=== PATIENT | male | born 1955 | race Caucasian/White ===

== ENCOUNTER 2017-06-14 19:23 | Emergency (ER) | payer OTHER ==
[~2017-06-14] VITALS: Ht 190.5 cm; Wt 65.8 kg
[~2017-06-14 19:23] MED LIST: ASPIRIN325 PO; DICLOFENAC SODI75 MG PO; DOXYCYCLINE 10100 MG PO; LIPITOR 20 MG T20 M1 PO; NORCO 10-325 T1 EACH PO; PREDNISONE 20 M20 M1 PO; PROAIR HFA8.5 GM; SPIRIVA INH; SYMBICORT160 MCG/4. INH
[2017-06-14 20:42] LABS: ABSOLUTE NEUTROPHILS 2.8 thou/uL (1.4-8.2); BASOPHILS 0.8 % (0.0-2.0); EOSINOPHILS 1.9 % (0.0-3.0); HEMATOCRIT 36.2 % (42.0-52.0); HEMOGLOBIN 12.4 gm/dL (14.0-18.0); LYMPHOCYTES 31.8 % (24.0-44.0); MANUAL DIFF NO; MCHC 34.3 g/dL (28.0-37.0); MCV 93.3 fL (80.0-100.0); MONOCYTES 10.7 % (1.0-8.0); PLATELET COUNT 403 thou/uL (150-400); POLYS 54.8 % (36.0-66.0); RBC 3.88 mil/uL (4.50-6.00); RDW 12.7 % (10.5-14.5)
[2017-06-14 20:50] LABS: CALCIUM 9.3 mg/dL (8.5-10.1); CREATININE 0.9 mg/dL (0.7-1.3); POTASSIUM 3.6 mmol/L (3.5-5.1)
[2017-06-14] MEDS ORDERED: CLEOCIN HCL150 MG PO (21:23)
[2017-06-14] MEDS ORDERED: TRAMADOL 50 MG50 MG PO (21:23)
== END 2017-06-14 21:54 | disposition home or self-care (01) ==
LOC: ER 19:23
PROVIDERS: Emergency Medicine
DX: S91.331A Puncture wound without foreign body, right foot, initial encounter (principal); L03.115 Cellulitis of right lower limb; F17.210 Nicotine dependence, cigarettes, uncomplicated; J44.1 Chronic obstructive pulmonary disease with (acute) exacerbation; W22.8XXA Striking against or struck by other objects, initial encounter; Y93.89 Activity, other specified; Y92.89 Other specified places as the place of occurrence of the external cause; Y99.8 Other external cause status

== ENCOUNTER 2017-07-06 18:58 | Inpatient (IN) | payer OTHER ==
[~2017-07-06] VITALS: Ht 188 cm; Wt 61.8 kg
--- NOTE | ~2017-07-06 | EKG ---
[place] [address] [address] [facility] [email or web address] [address] ELECTROCARDIOGRAM REPORT Name: ELIANE LUNDY Room #: [facility]#: [id number] Admission: 07/06/17 Attend Phys: Discharge: Date of : 59 Report #: [id number] THIS REPORT FOR: //name// [facility] ED Test Date: 2017-07-06 Test Time: 19:39:24 Pat Name: ELIANE LUNDY Department: Room: Gender: Instrument And Control Service Person: CARLO : 1955 Requested By: Anish Dove Order Number: [id number] MD: Jean Marie Cardoso Measurements Intervals [place] Rate: 74 P: 83 [place]: 172 QRS: 82 QRSD: 83 T: 71 QT: 382 QTc: 424 Interpretive Statements Sinus rhythm Low voltage, precordial leads Compared to ECG 07/12/2015 23:01:39 Low QRS voltage now present Electronically Signed On 07-06-2017 19:43:13 CDT by Jean Marie Cardoso [email or web address] <ELECTRONICALLY SIGNED> By: Jean Marie Cardoso MD 07/06/171942 38 38 Jean Marie Cardoso MD /MEME
[~2017-07-06 18:58] MED LIST changes: +CLEOCIN HCL150 MG PO; +TRAMADOL 50 MG50 MG PO
[2017-07-06 18:59] VITALS: BP 123/83
[2017-07-06 19:35] LABS: ABSOLUTE NEUTROPHILS 3.7 thou/uL (1.4-8.2); EOSINOPHILS 1.9 % (0.0-3.0); HEMOGLOBIN 12.8 gm/dL (14.0-18.0); LYMPHOCYTES 26.8 % (24.0-44.0); MCH 31.6 pg (26.0-34.0); MCHC 33.7 g/dL (28.0-37.0); MCV 93.9 fL (80.0-100.0); MONOCYTES 11.2 % (1.0-8.0); PLATELET COUNT 267 thou/uL (150-400); POLYS 59.1 % (36.0-66.0); RBC 4.04 mil/uL (4.50-6.00); RDW 13.1 % (10.5-14.5); WBC 6.3 thou/uL (4.0-11.0)
[2017-07-06 19:36] LABS: MANUAL DIFF NO
[2017-07-06 19:37] LABS: ABG SAMPLE TYPE ARTERIAL; BE(vivo) 3.1 mmol/L (-2 to +3); LACTATE 1.13 mmol/L (0.5-2.0); O2(CT) 17.8 mL/dL (15.0-23.0); O2Hb 94.2 % (92.0-98.0); PCO2 43.8 mmHg (35.0-45.0); PO2 93.9 mmHg (80.0-100.0); pH 7.424 (7.360-7.450); sO2 97.3 % (92.0-98.0); tCO2 29.4 mmol/L (24.0-30.0)
[2017-07-06 19:40] LABS: STICK SITE L.BRACHIAL
[2017-07-06 19:42] LABS: ANION GAP 6 mmol/L (7-16); BUN 11 mg/dL (7-18); CALCIUM 8.9 mg/dL (8.5-10.1); CHLORIDE 103 mmol/L (98-107); CO2 31 mmol/L (21-32); CREATININE 0.8 mg/dL (0.7-1.3); GLUCOSE 98 mg/dL (74-106); POTASSIUM 3.6 mmol/L (3.5-5.1); SODIUM 140 mmol/L (136-145)
[2017-07-06 19:51] LABS: TROPONIN-I < 0.04 ng/mL (<0.06)
[2017-07-06 20:17] VITALS: BP 122/78
[2017-07-06 20:39] VITALS: BP 117/76
[2017-07-06 20:56] VITALS: BP 115/86
[2017-07-06 23:42] VITALS: BP 125/78
[2017-07-07 04:11] VITALS: BP 110/73
[2017-07-07 07:49] VITALS: BP 124/85
[2017-07-07 15:15] VITALS: BP 108/69
[2017-07-07 19:41] VITALS: BP 109/61
[2017-07-08 07:41] VITALS: BP 122/76
[2017-07-08 08:00] VITALS: BP 122/76
[2017-07-08] MEDS ORDERED: DOXYCYCLINE HYC50 MG PO (10:43)
[2017-07-08] MEDS ORDERED: PROAIR HFA8.5 GM INH (10:44)
[2017-07-08] MEDS ORDERED: SPIRIVA INH (10:44)
[2017-07-08] MEDS ORDERED: PULMICORT0.5 MG/21 INH (10:45)
[2017-07-08] MEDS ORDERED: PREDNISONE 20 M20 MG PO (10:45)
[2017-07-08 10:52] VITALS: BP 122/76
[2017-07-08 11:38] VITALS: BP 122/76
== END 2017-07-08 13:32 | disposition home or self-care (01) | DRG 192 ==
LOC: ER 18:58 → EROBS 20:07 → 4S 20:45 → ENTRNSPT 07-08 13:20 → EDTRNSPTSTS 07-08 13:21 → 4S 07-08 13:32
PROVIDERS: Nurse Practitioner
DX: J44.0 Chronic obstructive pulmonary disease with (acute) lower respiratory infection (principal); J44.1 Chronic obstructive pulmonary disease with (acute) exacerbation; I48.91 Unspecified atrial fibrillation; J20.9 Acute bronchitis, unspecified; Z99.81 Dependence on supplemental oxygen; Z87.891 Personal history of nicotine dependence; Z23 Encounter for immunization
CPT/HCPCS: 10100

== ENCOUNTER 2017-07-21 04:18 | Inpatient (IN) | payer OTHER ==
[~2017-07-21] VITALS: Ht 188 cm; Wt 60.8 kg
--- NOTE | ~2017-07-21 | EKG ---
[address] [address] ELECTROCARDIOGRAM REPORT Name: ELIANE LUNDY GLENNY Room #: 447-P ADM IN M.R.#: [id number] Admission: 07/21/17 Attend Phys: Anthony Mckay MD Discharge: Date of : 59 Report #: [id number] THIS REPORT FOR: //name// [facility] ED Test Date: 2017-07-21 Test Time: 05:40:13 Pat Name: ELIANE LUNDY Department: Room: 447 P Gender: M Geospatial Image Analyst: WENDY : 1955 Requested By: Osvaldo Tapia Order Number: [id number] MD: Jean Marie Cardoso Measurements Intervals [place] Rate: 71 P: 80 [place]: 155 QRS: 77 QRSD: 90 T: 73 QT: 375 QTc: 408 Interpretive Statements Sinus rhythm Probable left atrial enlargement Compared to ECG 07/06/2017 19:39:24 No significant changes Electronically Signed On 07-21-2017 20:59:08 PROTEIN SPECIALIST by Jean Marie Cardoso [email or web address] <ELECTRONICALLY SIGNED> By: Jean Marie Cardoso MD 07/21/172058 9 9 Jean Marie Cardoso MD /MEME
--- NOTE | ~2017-07-21 | HC ---
[facility] [place] [address] CONSULTATION Name: ELIANE LUNDY Room #: 447-P ADM IN M.R.#: [id number] Admission: 07/21/17 Attend Phys: Anthony Mckay MD Discharge: Date of : 59 Report #: [id number] THIS REPORT FOR: //name// CC: Lester Mckay PRIMARY PHYSICIAN: Daron Wilhelm DO REFERRAL PHYSICIAN: Anthony Mckay MD REASON FOR REFERRAL: COPD exacerbation. HISTORY OF PRESENT ILLNESS: The patient is a 61-year-old white male who presents to the emergency room with acute onset of dyspnea. A pulmonary consultation was requested. The patient has known severe COPD. He is normally followed by Dr. Jayson Hsieh at [facility]. He states that he has been hospitalized about every 2 months or so. He has also been offered possible lung transplantation. I believe he is on the process of being evaluated. He was doing fairly well until the last few days, he has noticed mild increase in dyspnea. Early this morning around 3:00 a.m., he woken with severe dyspnea and chest tightness. For that reason, he presents to the emergency room. Otherwise, he denies any recent febrile illness, night sweats or chills, chest pain or productive cough. He denies anyone else sick at home including viral syndrome. PAST MEDICAL HISTORY: Remarkable for COPD, severe impairment, oxygen dependent; has a history of atrial fibrillation, undergone ablation. PAST SURGICAL HISTORY: Include prior right foot reconstructive surgery, right knee surgery, tonsillectomy, and lens implantation. ALLERGIES: None to medications. HOME MEDICATIONS: Include Spiriva once a day, ProAir 2 puffs p.r.n., budesonide nebulized 0.5 mg b.i.d., he recently finished a course of pulse prednisone therapy and doxycycline. FAMILY HISTORY: Noncontributory. SOCIAL HISTORY: The patient has smoked in the past, but quit recently, he has smoked more than 40 years. He denies any alcohol use. [facility] [address] [place] [address] CONSULTATION Name: ELIANE LUNDY Room #: 447-P [facility] IN .R.#: [id number] Admission: 07/21/17 Attend Phys: Anthony Mckay MD Discharge: Date of : 59 Report #: [id number] REVIEW OF SYSTEMS: As mentioned above, otherwise 10-point system review negative. PHYSICAL EXAMINATION: GENERAL: He is awake, alert, in mild respiratory distress. VITAL SIGNS: Temperature is 98 degrees Fahrenheit, pulse is 84, respiratory rate is 20, blood pressure 135/92 mmHg, and saturation 97%. HEENT: Normocephalic, atraumatic. NECK: Supple, without any lymphadenopathy or thyromegaly. CHEST: Breath sounds are decreased bilaterally with mild expiratory wheezes. CARDIOVASCULAR: Normal S1, S2. There is no murmur or gallop. There is no JVD. There is no carotid bruit. Pulses are 2+/4+ bilaterally. ABDOMEN: Soft, nontender, no organomegaly or masses felt. GENITOURINARY: Deferred. RECTAL: Deferred. EXTREMITIES: There is no edema, cyanosis, or clubbing. LABORATORY DATA: Chest x-ray shows hyperexpansion, no infiltrates seen. Electrolytes are normal. Liver function enzymes are normal. WBC 10,900, hemoglobin 12.7, platelets are normal. Arterial blood gas revealed pH 7.33, pCO2 of 49, pO2 of 94 on 3 liters of O2. Albumin 3.3. IMPRESSION: 1. Acute on chronic hypercapnic hypoxic respiratory failure in this 61-year-old white male. 2. Chronic obstructive pulmonary disease, severe impairment, exacerbation, etiology undetermined, but suspect early respiratory tract infection versus possible viral syndrome. RECOMMENDATION: Agree with current treatment plans including corticosteroids, bronchodilators, and broad spectrum antibiotics. We will complete approximately 7 days of antibiotics. Taper corticosteroids over the next one week or so. DVT and GI prophylaxis will be addressed. Thank you for this consultation. <ELECTRONICALLY SIGNED> By: Jimy Monae MD 07/22/17 1414 1249 1832 Jimy Monae MD /nt
--- NOTE | ~2017-07-21 | EKG ---
[address] [address] ELECTROCARDIOGRAM REPORT Name: ELIANE LUNDY GLENNY Room #: 447-P ADM IN M.R.#: [id number] Admission: 07/21/17 Attend Phys: Anthony Mckay MD Discharge: Date of : 59 Report #: [id number] THIS REPORT FOR: //name// [facility] ED Test Date: 2017-07-21 Test Time: 04:44:05 Pat Name: ELIANE LUNDY Department: Room: 447 P Gender: M Flight Hostess: nirav : 1955 Requested By: Osvaldo Tapia Order Number: [id number] MD: Jean Marie Cardoso Measurements Intervals [place] Rate: 86 P: 85 [place]: 157 QRS: 79 QRSD: 87 T: 66 QT: 353 QTc: 423 Interpretive Statements Sinus rhythm Probable left atrial enlargement Compared to ECG 07/06/2017 19:39:24 No significant changes Electronically Signed On 07-21-2017 20:58:51 RIP SAW OPERATOR by Jean Marie Cardoso [email or web address] <ELECTRONICALLY SIGNED> By: Jean Marie Cardoso MD 07/21/172057 3 3 Jean Marie Cardoso MD /MEME
--- NOTE | ~2017-07-21 | EKG ---
[address] [address] ELECTROCARDIOGRAM REPORT Name: ELIANE LUNDY Room #: 447-P ADM IN M.R.#: [id number] Admission: 07/21/17 Attend Phys: Anthony Mckay MD Discharge: Date of : 59 Report #: [id number] THIS REPORT FOR: //name// [facility] Test Date: 2017-07-21 Test Time: 07:20:52 Pat Name: ELIANE LUNDY Department: Room: [facility] Gender: M Snagger: NELSON : 1955 Requested By: Osvaldo Tapia Order Number: [id number] MD: Justin Rayo Measurements Intervals [place] Rate: 78 P: 82 [place]: 160 QRS: 79 QRSD: 84 T: 67 QT: 369 QTc: 421 Interpretive Statements Sinus rhythm No significant abnormality Compared to ECG 07/06/2017 19:39:24 No significant changes Electronically Signed On 07-21-2017 7:45:45 REPAIRER SWITCHGEAR by Justin Rayo [email or web address] <ELECTRONICALLY SIGNED> By: Justin Rayo MD, [facility] 07/21/17 0745 9 Justin Rayo MD, FACC /EPI
[~2017-07-21 04:18] MED LIST changes: +DOXYCYCLINE HYC50 MG PO; +PREDNISONE 20 M20 MG PO; +PROAIR HFA8.5 GM INH; +PULMICORT0.5 MG/21 INH
[2017-07-21 04:22] VITALS: BP 129/90
[2017-07-21 04:37] LABS: ABG SAMPLE TYPE ARTERIAL; BE(vivo) -0.8 mmol/L (-2 to +3); HCO3 25.6 mmol/L (22.0-26.0); LACTATE 1.88 mmol/L (0.5-2.0); O2(CT) 18.3 mL/dL (15.0-23.0); STICK SITE L.BRACHIAL; pH 7.336 (7.360-7.450); sO2 96.7 % (92.0-98.0); tCO2 27.1 mmol/L (24.0-30.0)
[2017-07-21 04:47] LABS: BASOPHILS 0.3 % (0.0-2.0); EOSINOPHILS 0.9 % (0.0-3.0); HEMATOCRIT 38.7 % (42.0-52.0); HEMOGLOBIN 12.7 gm/dL (14.0-18.0); LYMPHOCYTES 16.1 % (24.0-44.0); MCH 31.4 pg (26.0-34.0); MCHC 32.9 g/dL (28.0-37.0); MCV 95.4 fL (80.0-100.0); PLATELET COUNT 287 thou/uL (150-400); POLYS 74.7 % (36.0-66.0); RBC 4.05 mil/uL (4.50-6.00); WBC 10.8 thou/uL (4.0-11.0)
[2017-07-21 04:49] LABS: MANUAL DIFF NO
[2017-07-21 04:55] LABS: ANION GAP 7 mmol/L (7-16); BUN 16 mg/dL (7-18); CALCIUM 8.5 mg/dL (8.5-10.1); CHLORIDE 107 mmol/L (98-107); CO2 31 mmol/L (21-32); CREATININE 0.7 mg/dL (0.7-1.3); GLUCOSE 114 mg/dL (74-106); POTASSIUM 3.5 mmol/L (3.5-5.1); SODIUM 145 mmol/L (136-145)
[2017-07-21 05:04] LABS: ALBUMIN 3.3 g/dL (3.4-5.0); ALKALINE PHOSPHATASE 105 U/L (46-116); MAGNESIUM 1.9 mg/dL (1.8-2.4); SGOT 17 U/L (15-37); SGPT 20 U/L (30-65); TOTAL BILIRUBIN 0.3 mg/dL (<0.1-1.0); TOTAL PROTEIN 6.5 g/dL (6.4-8.2); TROPONIN-I < 0.04 ng/mL (<0.06)
[2017-07-21 05:59] VITALS: BP 108/74
[2017-07-21 06:04] VITALS: BP 100/71
[2017-07-21 08:00] VITALS: BP 135/92
[2017-07-21 16:00] VITALS: BP 130/76
[2017-07-21 20:01] VITALS: BP 112/68
[2017-07-22 04:29] LABS: CALCIUM 8.9 mg/dL (8.5-10.1); CREATININE 0.8 mg/dL (0.7-1.3); HEMATOCRIT 36.7 % (42.0-52.0); HEMOGLOBIN 12.2 gm/dL (14.0-18.0); MAGNESIUM 1.8 mg/dL (1.8-2.4); MCH 31.4 pg (26.0-34.0); MCHC 33.2 g/dL (28.0-37.0); MCV 94.6 fL (80.0-100.0); POTASSIUM 4.4 mmol/L (3.5-5.1); RBC 3.88 mil/uL (4.50-6.00); RDW 12.9 % (10.5-14.5); WBC 8.9 thou/uL (4.0-11.0)
[2017-07-22 05:04] VITALS: BP 110/68
[2017-07-22 07:40] VITALS: BP 110/65
[2017-07-22 16:50] VITALS: BP 103/66
[2017-07-22 20:01] VITALS: BP 101/66
[2017-07-23 04:16] LABS: CALCIUM 8.9 mg/dL (8.5-10.1); CREATININE 0.9 mg/dL (0.7-1.3); MAGNESIUM 2.1 mg/dL (1.8-2.4); POTASSIUM 4.8 mmol/L (3.5-5.1)
[2017-07-23 04:24] LABS: HEMATOCRIT 35.7 % (42.0-52.0); HEMOGLOBIN 11.9 gm/dL (14.0-18.0); MCH 31.5 pg (26.0-34.0); MCHC 33.3 g/dL (28.0-37.0); MCV 94.5 fL (80.0-100.0); RBC 3.78 mil/uL (4.50-6.00); RDW 12.9 % (10.5-14.5)
[2017-07-23 04:45] VITALS: BP 98/61
[2017-07-23 08:31] VITALS: BP 129/83
[2017-07-23 16:11] VITALS: BP 111/75
[2017-07-23 19:48] VITALS: BP 110/72
[2017-07-24 03:51] VITALS: BP 119/84
[2017-07-24 06:20] LABS: HEMATOCRIT 37.6 % (42.0-52.0); HEMOGLOBIN 12.5 gm/dL (14.0-18.0); MCH 31.2 pg (26.0-34.0); MCHC 33.2 g/dL (28.0-37.0); MCV 93.8 fL (80.0-100.0); RBC 4.01 mil/uL (4.50-6.00); RDW 13.2 % (10.5-14.5); WBC 10.5 thou/uL (4.0-11.0)
[2017-07-24 06:31] LABS: CALCIUM 8.7 mg/dL (8.5-10.1); CREATININE 0.9 mg/dL (0.7-1.3); MAGNESIUM 2.1 mg/dL (1.8-2.4); POTASSIUM 4.3 mmol/L (3.5-5.1)
[2017-07-24 07:35] VITALS: BP 117/85
[2017-07-24 17:16] VITALS: BP 105/72
[2017-07-24 19:27] VITALS: BP 117/79
[2017-07-25 04:53] VITALS: BP 103/69
[2017-07-25 08:00] VITALS: BP 117/76
[2017-07-25 16:00] VITALS: BP 113/74
[2017-07-25 20:09] VITALS: BP 104/68
[2017-07-26 04:04] VITALS: BP 127/90
[2017-07-26 05:41] LABS: ABSOLUTE NEUTROPHILS 8.3 thou/uL (1.4-8.2); BASOPHILS 0.2 % (0.0-2.0); EOSINOPHILS 0.5 % (0.0-3.0); HEMOGLOBIN 12.4 gm/dL (14.0-18.0); LYMPHOCYTES 20.2 % (24.0-44.0); MCH 30.8 pg (26.0-34.0); MCHC 32.6 g/dL (28.0-37.0); MCV 94.4 fL (80.0-100.0); MONOCYTES 8.3 % (1.0-8.0); PLATELET COUNT 283 thou/uL (150-400); POLYS 70.8 % (36.0-66.0); RBC 4.03 mil/uL (4.50-6.00); RDW 13.2 % (10.5-14.5); WBC 11.8 thou/uL (4.0-11.0)
[2017-07-26 05:46] LABS: MANUAL DIFF NO
[2017-07-26 05:53] LABS: CALCIUM 8.4 mg/dL (8.5-10.1); CREATININE 0.9 mg/dL (0.7-1.3); POTASSIUM 4.3 mmol/L (3.5-5.1)
[2017-07-26 08:31] VITALS: BP 94/58
[2017-07-26] MEDS ORDERED: LEVAQUIN 500 M500 M1 PO (09:09)
[2017-07-26] MEDS ORDERED: PANTOPRAZOLE SO40 M1 PO (09:10)
[2017-07-26] MEDS ORDERED: ACETAMINOPHEN325 M1 PO (09:10)
[2017-07-26] MEDS ORDERED: PREDNISONE 10 M10 M1 PO (09:12)
[2017-07-26 12:09] VITALS: BP 94/58
[2017-07-26 14:10] VITALS: BP 94/58
== END 2017-07-26 14:10 | disposition home or self-care (01) | DRG 189 ==
LOC: ER 04:18 → EROBS 05:25 → 4S 06:38
PROVIDERS: Emergency Medicine; Nurse Practitioner; Nurse Practitioner Family; Registered Nurse
DX: J96.21 Acute and chronic respiratory failure with hypoxia (principal); J44.1 Chronic obstructive pulmonary disease with (acute) exacerbation; I48.91 Unspecified atrial fibrillation; I50.9 Heart failure, unspecified; J96.22 Acute and chronic respiratory failure with hypercapnia; K21.9 Gastro-esophageal reflux disease without esophagitis; D72.829 Elevated white blood cell count, unspecified; F17.210 Nicotine dependence, cigarettes, uncomplicated; Z71.6 Tobacco abuse counseling; Z99.81 Dependence on supplemental oxygen; Z79.82 Long term (current) use of aspirin; Z79.899 Other long term (current) drug therapy
CPT/HCPCS: 10100

== ENCOUNTER 2017-09-17 22:55 | Inpatient (IN) | payer OTHER ==
[~2017-09-17] VITALS: Ht 188 cm; Wt 63.5 kg
--- NOTE | ~2017-09-17 | HC ---
[facility] [place] [place] [address] CONSULTATION Name: ELIANE LUNDY Room #: 353-P [facility] IN M.R.#: [id number] Admission: 09/18/17 Attend Phys: Qamar Diaz DO Discharge: 09/23/17 Date of : 59 Report #: [id number] THIS REPORT FOR: //name// CC: FAM unknown Qamar Diaz REQUESTING PHYSICIAN: Dr. Velasco CHIEF COMPLAINT: COPD. HISTORY OF PRESENT ILLNESS: The patient is a 62-year-old male who presented to [facility] on 09/17/2017 with increased shortness of breath and recurrent COPD exacerbation symptoms. The patient has had multiple hospitalizations recently. He has had an increase in his overall need for oxygen, chronically wears 3 liters of O2 at home. Unfortunately, the patient had been found by previous pulmonary function testing to have an FEV1 of 18% of predicted. He has an additional difficulty with cellulitis of his right foot. His primary care is Dr. Juan Miranda. Per patient his biggest problem is dyspnea. He has had air hunger since his admission. He does not report pain or any bowel troubles at all or any nausea, but he has had difficulty taking p.o. given he has considerable dyspnea. The patient has difficulty getting 3 words out without taking a breath. PAST MEDICAL HISTORY: Significant for combined chronic respiratory failure, 3 liters oxygen at home, COPD, which is severe type. Additionally, has atrial fibrillation and had an ablation previously. He has had a 40-year smoking history. PAST SURGICAL HISTORY: Tonsillectomy, right foot reconstruction, right meniscal repair, lens implants for cataracts. SOCIAL HISTORY: Current everyday smoker, 1-2 cigarettes per day for approximately 40 years, he smoked, although higher amounts than current. FAMILY HISTORY: Mother from congestive heart failure. HOME MEDICATIONS: Spiriva, albuterol, Advair, diltiazem 30 mg q.6h., aspirin, prednisone. He was on 50 mg daily prior to arrival. ALLERGIES: No known drug allergies. REVIEW OF SYSTEMS: Denies any recent significant weight changes including weight gain, although he has had a steady weight loss, likely due to respiratory function. CARDIOVASCULAR: Denies chest pain, palpitations. RESPIRATORY: Does report air hunger and dyspnea, does report cough. ABDOMEN: Denies nausea, vomiting, constipation or diarrhea. [address] [address] CONSULTATION Name: ELIANE LUNDY Room #: 353-P [facility] IN M.R.#: [id number] Admission: 09/18/17 Attend Phys: Qamar Diaz DO Discharge: 09/23/17 Date of : 59 Report #: [id number] GENITOURINARY: Denies dysuria. PHYSICAL EXAMINATION: VITAL SIGNS: Temperature 36.9, pulse 63, respirations 18, blood pressure 109/76, 97% on his current nasal cannula. GENERAL: The patient is alert. He is oriented x 3. He is in moderate respiratory distress, moderate to severe at this time. HEENT: No scleral icterus or conjunctival injection. CARDIOVASCULAR: Currently, regular rate and rhythm without murmur. LUNGS: Diffuse wheezing noted. ABDOMEN: Soft, nontender to palpation. Diminished bowel sounds. EXTREMITIES: Diffuse cachexia noted. LABORATORY DATA: These include hemoglobin 11.8, creatinine 0.7. ASSESSMENT AND PLAN: 1. Acute on chronic combined respiratory failure. I had a significant discussion of approximately 30 minutes of voluntary type of advanced care planning today with the patient. Discussed code status including intubation, CPR. Discussed that in his case, it would be very difficult from a standpoint of rehabilitation for a patient to recover from any intubation and I did discuss also quality of life standards for the patient and what he would view as a quality of life. Discussed CPR and the percentages surrounding its benefit overall. Discussed in addition hospice as an option. The patient is currently supporting home health care and the home health that he has chosen does have a hospice component. The patient is supportive of transitioning to hospice after home health, although he is still considering whether or not he would want to have CPR or intubation at this time. He states that he would remain full code at this current point in time. 2. Chronic obstructive pulmonary disease, end-stage. I appreciate Dr. Monae's recommendations with regards to this. I do believe the patient does significantly qualify for palliative care for hospice. I did provide [place] and gave him 30 tablets of 5/325. In addition, we gave him a dose here to see if that improved his shortness of breath or air hunger. The patient is to use p.r.n. at home. I discussed his roommate situation and keeping this medication safe and separate from anyone who has a potential to divert the medication, may need additional medication, the [place], but since he is opiate naive, I believe this is a good starting point. 3. Protein-calorie malnutrition affecting his overall quality at this point in time and overall longevity. I discussed this in context above. I will continue to follow with this patient, though it appears he may discharge from hospital today. [facility] [address] [place] [address] CONSULTATION Name: ELIANE LUNDY Room #: 353-P DIS IN M.R.#: [id number] Admission: 09/18/17 Attend Phys: Qamar Diaz DO Discharge: 09/23/17 Date of : 59 Report #: [id number] Thank you very much for the consultation. <ELECTRONICALLY SIGNED> By: Alvaro Rutledge DO 10/01/17 1223 1715 0914 Alvaro Rutledge DO /nt
--- NOTE | ~2017-09-17 | HC ---
[facility] [place] [address] CONSULTATION Name: ELIANE LUNDY Room #: 353-P [facility] IN M.R.#: [id number] Admission: 09/18/17 Attend Phys: Qamar Diaz DO Discharge: 09/23/17 Date of : 59 Report #: [id number] THIS REPORT FOR: //name// CC: FAM unknown Qamar Diaz PALLIATIVE CARE CONSULTATION REQUESTING PHYSICIAN: Dr. Velasco CHIEF COMPLAINT: Combined respiratory failure. HISTORY OF PRESENT ILLNESS: The patient is a 62-year-old male who presented initially on 09/17/2017 to the Emergency Department for recurrent respiratory failure. He has a long-standing history of COPD, continues to smoke. Unfortunately, he is chronically oxygen dependent, normally 3 liters via nasal cannula. The patient has a severely diminished lung capacity with FEV1 of 18% of predicted. He has had recurrent exacerbations recently despite maximal medication intervention. The patient, at this current point in time, does report dyspnea and overall air hunger. This appears to be his largest problem as he denies pain, denies bowel issues or nausea. He is having difficulty making complete sentences. In fact, he has 3-word ability prior to taking another breath. The patient has not had significant discussion with regards to palliative measures. The patient currently lives in an apartment with 4 additional roommates. He reports this is not an ideal situation for him. He is and about to get a divorce; however, his is attempting to help him get another living situation. PAST MEDICAL HISTORY: Significant for chronic combined respiratory failure, on 3 liters normally; COPD, severe type and hypertension. SOCIAL HISTORY: He currently continues to smoke and is not currently a candidate for additional intervention such as lung replacement. DICTATION ENDS HERE. <ELECTRONICALLY SIGNED> By: Alvaro Rutledge DO 10/01/17 1223 1703 0921 Alvaro Rutledge DO /nt
--- NOTE | ~2017-09-17 | EKG ---
[address] [address] ELECTROCARDIOGRAM REPORT Name: ELIANE LUNDY GLENNY Room #: 353-P ADM IN M.R.#: [id number] Admission: 09/18/17 Attend Phys: Gigi Van MD Discharge: Date of : 59 Report #: [id number] THIS REPORT FOR: //name// [facility] [place] [facility] Test Date: 2017-09-18 Test Time: 13:31:59 Pat Name: ELIANE LUNDY Department: Room: 353 P Gender: M Checking Clerk: Lacey GANDARA : 1955 Requested By: Glenny Diaz Order Number: [id number] MD: Jean Marie Cardoso Measurements Intervals [place] Rate: 86 P: 85 [place]: 163 QRS: 81 QRSD: 89 T: 84 QT: 378 QTc: 452 Interpretive Statements Sinus rhythm Right atrial enlargement Borderline right axis deviation Low voltage, precordial leads Nonspecific T abnrm, anterolateral leads Compared to ECG 08/20/2017 21:59:32 Low QRS voltage now present Sinus tachycardia no longer present Atrial premature complex(es) no longer present Electronically Signed On 09-18-2017 15:07:07 REACTOR FUELING SUPERVISOR by Jean Marie Cardoso [email or web address] <ELECTRONICALLY SIGNED> By: Jean Marie Cardoso MD 09/18/17 1507 1331 1331 Jean Marie Cardoso MD /EPI
[~2017-09-17 22:55] MED LIST changes: +ACETAMINOPHEN325 M1 PO; +ADVAIR HFA 230M12 GM INH; +LEVAQUIN 500 M500 M1 PO; +PANTOPRAZOLE SO40 M1 PO; +PREDNISONE 10 M10 M1 PO; +PREDNISONE 10 M10 MG PO; +PROVENTIL HFA6.7 G1 INH
[2017-09-17 23:00] VITALS: BP 114/86
[2017-09-17] MEDS ORDERED: DILTIAZEM HCL30 MG PO (23:07)
[2017-09-17 23:49] LABS: BE(vivo) 2.4 mmol/L (-2 to +3); HCO3 28.5 mmol/L (22.0-26.0); PCO2 VENOUS 50.5 mmHg (41.0-51.0); PO2 VENOUS 33.6 mmHg (35.0-45.0)
[2017-09-17 23:56] LABS: ANION GAP 6 mmol/L (7-16); BUN 9 mg/dL (7-18); CALCIUM 8.6 mg/dL (8.5-10.1); CHLORIDE 106 mmol/L (98-107); CO2 30 mmol/L (21-32); CREATININE 0.7 mg/dL (0.7-1.3); GLUCOSE 110 mg/dL (74-106); POTASSIUM 4.1 mmol/L (3.5-5.1); SODIUM 142 mmol/L (136-145)
[2017-09-18 00:06] LABS: ALBUMIN 3.3 g/dL (3.4-5.0); MAGNESIUM 1.7 mg/dL (1.8-2.4); SGOT 19 U/L (15-37); SGPT 22 U/L (30-65); TOTAL BILIRUBIN 0.3 mg/dL (<0.1-1.0); TOTAL PROTEIN 6.5 g/dL (6.4-8.2); TROPONIN-I < 0.04 ng/mL (<0.06)
[2017-09-18 00:14] LABS: ABSOLUTE NEUTROPHILS 5.6 thou/uL (1.4-8.2); BASOPHILS 0.6 % (0.0-2.0); EOSINOPHILS 1.7 % (0.0-3.0); HEMATOCRIT 35.7 % (42.0-52.0); LYMPHOCYTES 16.4 % (24.0-44.0); MCH 32.1 pg (26.0-34.0); MCHC 33.6 g/dL (28.0-37.0); MCV 95.5 fL (80.0-100.0); MONOCYTES 11.2 % (1.0-8.0); PLATELET COUNT 330 thou/uL (150-400); POLYS 70.1 % (36.0-66.0); RBC 3.74 mil/uL (4.50-6.00); RDW 13.5 % (10.5-14.5)
[2017-09-18 01:49] LABS: BE(vivo) 0.1 mmol/L (-2 to +3); PCO2 41.5 mmHg (35.0-45.0); PO2 74.9 mmHg (80.0-100.0); pH 7.398 (7.360-7.450)
[2017-09-18 11:26] VITALS: BP 111/60
[2017-09-18 11:43] VITALS: BP 132/85
[2017-09-18 12:30] VITALS: BP 118/78
[2017-09-18 15:45] VITALS: BP 110/73
[2017-09-18 19:32] VITALS: BP 107/72
[2017-09-19 04:07] VITALS: BP 99/51
[2017-09-19 05:22] LABS: ABSOLUTE NEUTROPHILS 9.6 thou/uL (1.4-8.2); BASOPHILS 0.1 % (0.0-2.0); HEMATOCRIT 32.8 % (42.0-52.0); HEMOGLOBIN 11.3 gm/dL (14.0-18.0); LYMPHOCYTES 5.5 % (24.0-44.0); MCH 32.9 pg (26.0-34.0); MCHC 34.4 g/dL (28.0-37.0); MCV 95.7 fL (80.0-100.0); MONOCYTES 5.4 % (1.0-8.0); PLATELET COUNT 337 thou/uL (150-400); RBC 3.43 mil/uL (4.50-6.00); RDW 13.2 % (10.5-14.5); WBC 10.8 thou/uL (4.0-11.0)
[2017-09-19 05:33] LABS: CALCIUM 8.6 mg/dL (8.5-10.1); CREATININE 0.7 mg/dL (0.7-1.3); POTASSIUM 4.5 mmol/L (3.5-5.1)
[2017-09-19 08:35] VITALS: BP 117/79
[2017-09-19 14:18] VITALS: BP 117/79
[2017-09-19 19:41] VITALS: BP 103/68
[2017-09-19 23:55] VITALS: BP 117/79
[2017-09-20 04:09] VITALS: BP 112/79
[2017-09-20 07:19] LABS: ABSOLUTE NEUTROPHILS 10.6 thou/uL (1.4-8.2); HEMATOCRIT 33.7 % (42.0-52.0); HEMOGLOBIN 11.3 gm/dL (14.0-18.0); MCHC 33.6 g/dL (28.0-37.0); MCV 95.3 fL (80.0-100.0); MONOCYTES 6.1 % (1.0-8.0); PLATELET COUNT 346 thou/uL (150-400); POLYS 87.9 % (36.0-66.0); RBC 3.54 mil/uL (4.50-6.00); WBC 12.1 thou/uL (4.0-11.0)
[2017-09-20 07:29] LABS: CALCIUM 8.6 mg/dL (8.5-10.1); CREATININE 0.7 mg/dL (0.7-1.3); POTASSIUM 3.9 mmol/L (3.5-5.1)
[2017-09-20 07:34] VITALS: BP 106/66
[2017-09-20 15:05] VITALS: BP 105/60
[2017-09-20 20:00] VITALS: BP 112/76
[2017-09-21 03:39] LABS: HEMATOCRIT 34.9 % (42.0-52.0); HEMOGLOBIN 11.8 gm/dL (14.0-18.0); MCH 32.1 pg (26.0-34.0); MCHC 33.9 g/dL (28.0-37.0); MCV 94.9 fL (80.0-100.0); PLATELET COUNT 378 thou/uL (150-400); RBC 3.68 mil/uL (4.50-6.00); WBC 10.1 thou/uL (4.0-11.0)
[2017-09-21 03:45] LABS: CALCIUM 8.6 mg/dL (8.5-10.1); CREATININE 0.7 mg/dL (0.7-1.3)
[2017-09-21 04:00] VITALS: BP 117/84
[2017-09-21 05:13] LABS: METAMYELOCYTES 1 %; MYELOCYTES 1 %
[2017-09-21 07:14] VITALS: BP 121/77
[2017-09-21 19:53] VITALS: BP 146/99
[2017-09-22 05:30] VITALS: BP 132/92
[2017-09-22 08:02] VITALS: BP 141/91
[2017-09-22 21:12] VITALS: BP 113/82
[2017-09-23 04:00] VITALS: BP 115/76
[2017-09-23 07:55] VITALS: BP 109/76
[2017-09-23] MEDS ORDERED: DUONEB 2.5-0.5 M3 ML INH (08:28)
[2017-09-23] MEDS ORDERED: MEDROL DOSPAK21 TA1 PO (09:50)
[2017-09-23 14:27] VITALS: BP 117/79
[2017-09-23 16:28] VITALS: BP 128/93
[2017-09-23 17:52] VITALS: BP 128/93
[2017-12-17] MEDS ORDERED: ASPIR 8181 M1 PO (19:43)
[2017-12-17] MEDS ORDERED: PREDNISONE 10 M10 MG PO (19:45)
[2017-12-17] MEDS ORDERED: XANAX 0.25 MG0.25 MG PO (19:46)
[2017-12-17] MEDS ORDERED: DILTIAZEM ER120 MG PO (22:46)
[2017-12-17] MEDS ORDERED: CARDIZEM CD120 MG PO (22:48)
[2017-12-24] MEDS ORDERED: MUCINEX DM ER1 EAC1 PO (13:15)
[2017-12-24] MEDS ORDERED: WELLBUTRIN SR150 MG PO (13:15)
[2017-12-24] MEDS ORDERED: NOVOLOG100 UNIT/1 SUBQ (13:15)
[2017-12-24] MEDS ORDERED: ENOXAPARIN40 MG/0.1 SUBQ (13:15)
[2017-12-24] MEDS ORDERED: NICOTINE1 EAC2 TRANSDERM (13:15)
[2017-12-24] MEDS ORDERED: SOLU-MEDRO40 MG/1 M1 IV PUSH (13:15)
[2017-12-24] MEDS ORDERED: ASPIRIN325 PO (13:15)
[2017-12-24] MEDS ORDERED: ZOSYN 3.3753.375 GM IV (13:25)
[2017-12-24] MEDS ORDERED: PROBIOTIC1 EAC1 PO (13:25)
== END 2017-09-23 20:19 | disposition home health service (06) | DRG 189 ==
LOC: ER 22:55 → EROBS 09-18 00:52 → 3W 09-18 00:52
PROVIDERS: Emergency Medicine; Family Medicine; Internal Medicine Pulmonary Disease; Nurse Practitioner Acute Care
PROC: 5A09457 Assistance with Respiratory Ventilation, 24-96 Consecutive Hours, Continuous Positive Airway Pressure (ICD-10-PCS; principal; 2017-09-19)
DX: J96.21 Acute and chronic respiratory failure with hypoxia (principal); J44.1 Chronic obstructive pulmonary disease with (acute) exacerbation; E46 Unspecified protein-calorie malnutrition; Z68.1 Body mass index [BMI] 19.9 or less, adult; J96.22 Acute and chronic respiratory failure with hypercapnia; I10 Essential (primary) hypertension; I48.91 Unspecified atrial fibrillation; E83.42 Hypomagnesemia; F17.210 Nicotine dependence, cigarettes, uncomplicated; Z79.51 Long term (current) use of inhaled steroids; Z79.899 Other long term (current) drug therapy; Z99.81 Dependence on supplemental oxygen; Z82.49 Family history of ischemic heart disease and other diseases of the circulatory system
CPT/HCPCS: 10080

== ENCOUNTER 2017-10-06 20:27 | Inpatient (IN) | payer OTHER ==
[~2017-10-06] VITALS: Ht 188 cm; Wt 63.5 kg
--- NOTE | ~2017-10-06 | EKG ---
[address] [address] ELECTROCARDIOGRAM REPORT Name: ELIANE LUNDY GLENNY Room #: 421-P ADM IN M.R.#: [id number] Admission: 10/06/17 Attend Phys: Glenny Diaz DO Discharge: Date of : 59 Report #: [id number] THIS REPORT FOR: //name// [facility] ED Test Date: 2017-10-06 Test Time: 20:46:23 Pat Name: ELIANE LUNDY Department: Room: 421 Gender: M Supervisor Canvas Products: Elijah TOLENTINO : 1955 Requested By: Missy Caldera Order Number: [id number] MD: Jean Marie Cardoso Measurements Intervals [place] Rate: 61 P: 85 [place]: 166 QRS: 76 QRSD: 82 T: 73 QT: 381 QTc: 384 Interpretive Statements Sinus rhythm Baseline wander in lead(s) V2 Compared to ECG 09/18/2017 13:31:59 Atrial abnormality no longer present Electronically Signed On 10-07-2017 8:12:48 PELTS SKINNER by Jean Marie Cardoso [email or web address] <ELECTRONICALLY SIGNED> By: Jean Marie Cardoso MD 10/07/17811 45 45 Jean Marie Cardoso MD /MEME
[~2017-10-06 20:27] MED LIST changes: +DILTIAZEM HCL30 MG PO; +DUONEB 2.5-0.5 M3 ML INH; +MEDROL DOSPAK21 TA1 PO
[2017-10-06 20:28] VITALS: BP 131/72
[2017-10-06] MEDS ORDERED: HYDROCODON-ACE1 EAC7 PO (20:34)
[2017-10-06 21:05] LABS: ABSOLUTE NEUTROPHILS 8.3 thou/uL (1.4-8.2); BASOPHILS 0.4 % (0.0-2.0); EOSINOPHILS 0.8 % (0.0-3.0); HEMATOCRIT 37.4 % (42.0-52.0); HEMOGLOBIN 12.5 gm/dL (14.0-18.0); LYMPHOCYTES 10.1 % (24.0-44.0); MCHC 33.5 g/dL (28.0-37.0); MCV 95.5 fL (80.0-100.0); PLATELET COUNT 293 thou/uL (150-400); POLYS 81.7 % (36.0-66.0); RBC 3.92 mil/uL (4.50-6.00); RDW 13.2 % (10.5-14.5); WBC 10.2 thou/uL (4.0-11.0)
[2017-10-06 21:11] LABS: CALCIUM 8.6 mg/dL (8.5-10.1); CREATININE 0.7 mg/dL (0.7-1.3); POTASSIUM 3.9 mmol/L (3.5-5.1)
[2017-10-06 22:18] VITALS: BP 117/63
[2017-10-06 22:30] VITALS: BP 121/78
[2017-10-07 02:30] VITALS: BP 115/79
[2017-10-07 07:30] VITALS: BP 115/80
[2017-10-07 16:00] VITALS: BP 127/84
[2017-10-07 20:30] VITALS: BP 122/72
[2017-10-08 04:30] VITALS: BP 120/87
[2017-10-08 07:14] VITALS: BP 112/70
[2017-10-08 15:08] VITALS: BP 124/77
[2017-10-08 19:48] VITALS: BP 118/80
[2017-10-09 00:59] VITALS: BP 122/74
[2017-10-09 04:26] VITALS: BP 125/84
[2017-10-09 08:32] VITALS: BP 109/71
[2017-10-09 16:26] VITALS: BP 116/71
[2017-10-09 19:59] VITALS: BP 124/82
[2017-10-10 04:55] VITALS: BP 111/75
[2017-10-10 07:32] VITALS: BP 101/61
[2017-10-10] MEDS ORDERED: MEDROL DOSPAK21 TA1 PO (08:37)
[2017-10-10] MEDS ORDERED: AZITHROMYCIN 2250 MG PO (08:37)
[2017-10-10 09:59] VITALS: BP 101/61
[2017-10-10 13:58] VITALS: BP 101/61
[2017-10-10 15:30] VITALS: BP 124/71
[2017-10-10 17:12] VITALS: BP 124/71
[2017-12-17] MEDS ORDERED: ASPIR 8181 M1 PO (19:43)
[2017-12-17] MEDS ORDERED: PREDNISONE 10 M10 MG PO (19:45)
[2017-12-17] MEDS ORDERED: XANAX 0.25 MG0.25 MG PO (19:46)
[2017-12-17] MEDS ORDERED: DILTIAZEM ER120 MG PO (22:46)
[2017-12-17] MEDS ORDERED: CARDIZEM CD120 MG PO (22:48)
[2017-12-24] MEDS ORDERED: WELLBUTRIN SR150 MG PO (13:15)
[2017-12-24] MEDS ORDERED: NOVOLOG100 UNIT/1 SUBQ (13:15)
[2017-12-24] MEDS ORDERED: ASPIRIN325 PO (13:15)
[2017-12-24] MEDS ORDERED: MUCINEX DM ER1 EAC1 PO (13:15)
[2017-12-24] MEDS ORDERED: NICOTINE1 EAC2 TRANSDERM (13:15)
[2017-12-24] MEDS ORDERED: ENOXAPARIN40 MG/0.1 SUBQ (13:15)
[2017-12-24] MEDS ORDERED: SOLU-MEDRO40 MG/1 M1 IV PUSH (13:15)
[2017-12-24] MEDS ORDERED: ZOSYN 3.3753.375 GM IV (13:25)
[2017-12-24] MEDS ORDERED: PROBIOTIC1 EAC1 PO (13:25)
== END 2017-10-10 20:05 | disposition home or self-care (01) | DRG 189 ==
LOC: ER 20:27 → EROBS 21:53 → 4E 21:53
PROVIDERS: Emergency Medicine
DX: J96.21 Acute and chronic respiratory failure with hypoxia (principal); J44.1 Chronic obstructive pulmonary disease with (acute) exacerbation; E46 Unspecified protein-calorie malnutrition; I48.2 Chronic atrial fibrillation; F17.210 Nicotine dependence, cigarettes, uncomplicated; J96.22 Acute and chronic respiratory failure with hypercapnia; Z99.81 Dependence on supplemental oxygen; Z68.1 Body mass index [BMI] 19.9 or less, adult
CPT/HCPCS: 10183

== ENCOUNTER 2017-10-18 21:33 | Inpatient (IN) | payer OTHER ==
[~2017-10-18] VITALS: Ht 188 cm; Wt 59.7 kg
--- NOTE | ~2017-10-18 | EKG ---
[address] [place] [address] ELECTROCARDIOGRAM REPORT Name: ELIANE LUNDY Room #: 447-P ADM IN M.R.#: [id number] Admission: 10/18/17 Attend Phys: Qamar Diaz DO Discharge: Date of : 59 Report #: [id number] THIS REPORT FOR: //name// [facility] ED Test Date: 2017-10-18 Test Time: 21:51:46 Pat Name: ELIANE LUNDY Department: Room: [facility] Gender: M Hot Strip Mill Inspector: YECENIA : 1955 Requested By: Osvaldo Tapia Order Number: [id number] MD: Justin Rayo Measurements Intervals [place] Rate: 63 P: 68 [place]: 170 QRS: 74 QRSD: 97 T: 71 QT: 397 QTc: 407 Interpretive Statements Sinus rhythm No significant abnormality Compared to ECG 10/06/2017 20:46:23 No significant change was found Electronically Signed On 10-20-2017 7:32:09 GREEN MARKETING ANALYST by Justin Rayo [email or web address] <ELECTRONICALLY SIGNED> By: Justin Rayo MD, [facility] 10/20/17 0732 50 50 Justin Rayo MD, [facility] /EPI
[~2017-10-18 21:33] MED LIST changes: +AZITHROMYCIN 2250 MG PO; +HYDROCODON-ACE1 EAC7 PO
[2017-10-18 21:36] VITALS: BP 141/99
[2017-10-18 22:36] LABS: BE(vivo) 4.7 mmol/L (-2 to +3); HCO3 31.9 mmol/L (22.0-26.0); PCO2 VENOUS 59.6 mmHg (41.0-51.0); PO2 VENOUS 20.1 mmHg (35.0-45.0)
[2017-10-19 00:09] VITALS: BP 121/88
[2017-10-19 00:20] VITALS: BP 138/99
[2017-10-19 01:52] LABS: ANION GAP 6 mmol/L (7-16); BUN 13 mg/dL (7-18); CALCIUM 8.5 mg/dL (8.5-10.1); CHLORIDE 103 mmol/L (98-107); CO2 33 mmol/L (21-32); CREATININE 0.7 mg/dL (0.7-1.3); GLUCOSE 123 mg/dL (74-106); POTASSIUM 4.4 mmol/L (3.5-5.1); SODIUM 142 mmol/L (136-145)
[2017-10-19 02:06] LABS: HEMATOCRIT 37.6 % (42.0-52.0); HEMOGLOBIN 12.5 gm/dL (14.0-18.0); MCH 31.8 pg (26.0-34.0); MCHC 33.3 g/dL (28.0-37.0); MCV 95.5 fL (80.0-100.0); RBC 3.94 mil/uL (4.50-6.00); RDW 13.2 % (10.5-14.5); SGOT 31 U/L (15-37); SGPT 30 U/L (30-65); TOTAL BILIRUBIN 0.4 mg/dL (<0.1-1.0); TOTAL PROTEIN 6.5 g/dL (6.4-8.2); WBC 14.7 thou/uL (4.0-11.0)
[2017-10-19 02:07] LABS: TROPONIN-I < 0.04 ng/mL (<0.06)
[2017-10-19 04:25] VITALS: BP 108/81
[2017-10-19 09:46] VITALS: BP 102/66
[2017-10-19 19:09] VITALS: BP 125/77
[2017-10-20 04:46] VITALS: BP 118/76
[2017-10-20 06:39] LABS: ABSOLUTE NEUTROPHILS 17.4 thou/uL (1.4-8.2); HEMATOCRIT 36.2 % (42.0-52.0); HEMOGLOBIN 12.1 gm/dL (14.0-18.0); LYMPHOCYTES 3.1 % (24.0-44.0); MCH 31.8 pg (26.0-34.0); MCHC 33.4 g/dL (28.0-37.0); MCV 95.1 fL (80.0-100.0); MONOCYTES 1.5 % (1.0-8.0); PLATELET COUNT 399 thou/uL (150-400); POLYS 95.4 % (36.0-66.0); RBC 3.81 mil/uL (4.50-6.00); RDW 13.2 % (10.5-14.5); WBC 18.3 thou/uL (4.0-11.0)
[2017-10-20 06:46] LABS: CALCIUM 9.2 mg/dL (8.5-10.1); CREATININE 0.7 mg/dL (0.7-1.3); POTASSIUM 4.4 mmol/L (3.5-5.1)
[2017-10-20 07:35] VITALS: BP 114/69
[2017-10-20 11:43] LABS: BE(vivo) 2.6 mmol/L (-2 to +3); PCO2 40.6 mmHg (35.0-45.0); PO2 74.4 mmHg (80.0-100.0); sO2 95.4 % (92.0-98.0)
[2017-10-20 15:52] VITALS: BP 114/67
[2017-10-20 20:25] VITALS: BP 108/59
[2017-10-21 03:37] VITALS: BP 109/69
[2017-10-21 08:41] VITALS: BP 104/73
[2017-10-21 16:04] VITALS: BP 120/84
[2017-10-21 19:22] VITALS: BP 123/89
[2017-10-22 00:11] VITALS: BP 104/72
[2017-10-22 04:03] VITALS: BP 93/63
[2017-10-22 06:49] LABS: ABSOLUTE NEUTROPHILS 17.6 thou/uL (1.4-8.2); HEMOGLOBIN 11.8 gm/dL (14.0-18.0); LYMPHOCYTES 2.2 % (24.0-44.0); MCH 30.8 pg (26.0-34.0); MCHC 32.6 g/dL (28.0-37.0); MCV 94.4 fL (80.0-100.0); MONOCYTES 1.5 % (1.0-8.0); PLATELET COUNT 367 thou/uL (150-400); POLYS 96.3 % (36.0-66.0); RBC 3.81 mil/uL (4.50-6.00); RDW 13.2 % (10.5-14.5); WBC 18.3 thou/uL (4.0-11.0)
[2017-10-22 07:10] LABS: CREATININE 0.7 mg/dL (0.7-1.3); POTASSIUM 4.3 mmol/L (3.5-5.1)
[2017-10-22] MEDS ORDERED: DOXYCYCLINE HYC50 MG PO (08:06)
[2017-10-22] MEDS ORDERED: ENOXAPARIN40 MG/0.1 SUBQ (08:06)
[2017-10-22] MEDS ORDERED: SOLU-MEDRO125 MG/24 IV PUSH (08:07)
[2017-10-22] MEDS ORDERED: PANTOPRAZOLE SO40 M1 PO (08:07)
[2017-10-22] MEDS ORDERED: NOVOLOG100 UNIT/1 SUBQ (08:07)
[2017-10-22] MEDS ORDERED: HYDROCODON-ACE1 EAC7 PO (08:07)
[2017-10-22 08:51] VITALS: BP 113/76
[2017-10-22 12:55] VITALS: BP 113/76
[2017-12-17] MEDS ORDERED: ASPIR 8181 M1 PO (19:43)
[2017-12-17] MEDS ORDERED: PREDNISONE 10 M10 MG PO (19:45)
[2017-12-17] MEDS ORDERED: XANAX 0.25 MG0.25 MG PO (19:46)
[2017-12-17] MEDS ORDERED: DILTIAZEM ER120 MG PO (22:46)
[2017-12-17] MEDS ORDERED: CARDIZEM CD120 MG PO (22:48)
[2017-12-24] MEDS ORDERED: SOLU-MEDRO40 MG/1 M1 IV PUSH (13:15)
[2017-12-24] MEDS ORDERED: MUCINEX DM ER1 EAC1 PO (13:15)
[2017-12-24] MEDS ORDERED: NICOTINE1 EAC2 TRANSDERM (13:15)
[2017-12-24] MEDS ORDERED: ENOXAPARIN40 MG/0.1 SUBQ (13:15)
[2017-12-24] MEDS ORDERED: NOVOLOG100 UNIT/1 SUBQ (13:15)
[2017-12-24] MEDS ORDERED: WELLBUTRIN SR150 MG PO (13:15)
[2017-12-24] MEDS ORDERED: ASPIRIN325 PO (13:15)
[2017-12-24] MEDS ORDERED: PROBIOTIC1 EAC1 PO (13:25)
[2017-12-24] MEDS ORDERED: ZOSYN 3.3753.375 GM IV (13:25)
== END 2017-10-22 16:05 | DRG 189 ==
LOC: ER 21:33 → 4S 23:35 → EROBS 23:35 → 4S 10-19 00:10
PROVIDERS: Emergency Medicine; Family Medicine; Nurse Practitioner
DX: J96.21 Acute and chronic respiratory failure with hypoxia (principal); J44.1 Chronic obstructive pulmonary disease with (acute) exacerbation; J44.0 Chronic obstructive pulmonary disease with (acute) lower respiratory infection; R64 Cachexia; Z68.1 Body mass index [BMI] 19.9 or less, adult; E46 Unspecified protein-calorie malnutrition; I48.0 Paroxysmal atrial fibrillation; F17.210 Nicotine dependence, cigarettes, uncomplicated; J96.22 Acute and chronic respiratory failure with hypercapnia; J20.9 Acute bronchitis, unspecified; Z99.81 Dependence on supplemental oxygen; Z71.6 Tobacco abuse counseling; Z82.49 Family history of ischemic heart disease and other diseases of the circulatory system
CPT/HCPCS: 10195

== ENCOUNTER 2018-08-04 13:48 | Emergency (ER) | payer OTHER ==
[~2018-08-04] VITALS: Ht 188 cm; Wt 88.9 kg
--- NOTE | ~2018-08-04 | EKG ---
[place] [address] [facility] [place] [address] ELECTROCARDIOGRAM REPORT Name: ELIANE LUNDY Room #: REG [facility]#: [id number] Admission: 08/04/18 Attend Phys: Discharge: Date of : 59 Report #: [id number] THIS REPORT FOR: //name// [facility] ED Test Date: 2018-08-04 Test Time: 13:58:45 Pat Name: ELIANE LUNDY Department: Room: Gender: Nursing Education Specialist: YUE : 1955 Requested By: Robby Sandoval Order Number: [id number] MD: Dov Galindo Measurements Intervals [place] Rate: 87 P: 72 [place]: 158 QRS: 76 QRSD: 83 T: 62 QT: 360 QTc: 433 Interpretive Statements Sinus rhythm Baseline wander Early transition Nonspecific ST-T wave changes Compared to ECG 10/18/2017 21:51:46 ST (T wave) deviation now present Electronically Signed On 08-04-2018 17:22:41 SALES DEVELOPMENT COORDINATOR by Dov Galindo [email or web address] <ELECTRONICALLY SIGNED> By: Dov Galindo MD 08/04/18 1722 1358 1358 Dov Galindo MD /EPI
[~2018-08-04 13:48] MED LIST changes: +ASPIR 8181 M1 PO; +CARDIZEM CD120 MG PO; +DILTIAZEM ER120 MG PO; +ENOXAPARIN40 MG/0.1 SUBQ; +MUCINEX DM ER1 EAC1 PO; +NICOTINE1 EAC2 TRANSDERM; +NOVOLOG100 UNIT/1 SUBQ; +PROBIOTIC1 EAC1 PO; +SOLU-MEDRO125 MG/24 IV PUSH; +SOLU-MEDRO40 MG/1 M1 IV PUSH; +WELLBUTRIN SR150 MG PO; +XANAX 0.25 MG0.25 MG PO; +ZOSYN 3.3753.375 GM IV
[2018-08-04 14:03] LABS: HEMATOCRIT 36.2 % (42.0-52.0); HEMOGLOBIN 12.4 gm/dL (14.0-18.0); MCH 30.5 pg (26.0-34.0); MCHC 34.2 g/dL (28.0-37.0); MCV 89.4 fL (80.0-100.0); PLATELET COUNT 328 thou/uL (150-400); RBC 4.05 mil/uL (4.50-6.00); RDW 13.6 % (10.5-14.5); WBC 6.2 thou/uL (4.0-11.0)
[2018-08-04 14:12] LABS: ANION GAP 8 mmol/L (7-16); BUN 20 mg/dL (7-18); CALCIUM 9.4 mg/dL (8.5-10.1); CHLORIDE 99 mmol/L (98-107); CO2 30 mmol/L (21-32); CREATININE 1.1 mg/dL (0.7-1.3); GLUCOSE 117 mg/dL (74-106); POTASSIUM 4.1 mmol/L (3.5-5.1); SODIUM 137 mmol/L (136-145)
[2018-08-04 14:16] LABS: BE(vivo) 1.5 mmol/L (-2 to +3); HCO3 27.1 mmol/L (22.0-26.0); PCO2 46.9 mmHg (35.0-45.0); PO2 96.7 mmHg (80.0-100.0); sO2 97.2 % (92.0-98.0)
[2018-08-04] MEDS ORDERED: DULCOLAX5 MG PO (14:20)
[2018-08-04 14:21] LABS: ALBUMIN 3.7 g/dL (3.4-5.0); SGOT 27 U/L (15-37); SGPT 36 U/L (30-65); TOTAL BILIRUBIN 0.4 mg/dL (<0.1-1.0); TOTAL PROTEIN 7.8 g/dL (6.4-8.2); TROPONIN-I <0.06 ng/mL (<0.06)
[2018-08-04] MEDS ORDERED: PULMICORT0.5 MG/22 INH (14:21)
[2018-08-04] MEDS ORDERED: MSL20MG/ML PO (14:21)
[2018-08-04] MEDS ORDERED: IPRATROPIU0.2 MG/1 M INH (14:21)
[2018-08-04] MEDS ORDERED: MELATONIN5 M1 PO (14:22)
[2018-08-04] MEDS ORDERED: MAXZIDE-25 MG1 EACH PO (14:22)
[2018-08-04 14:56] LABS: ABSOLUTE NEUTROPHILS 4.8 thou/uL (1.4-8.2); ANISOCYTOSIS SLIGHT
[2018-08-04] MEDS ORDERED: PREDNISONE 20 M20 M1 PO (16:25)
[2018-08-04] MEDS ORDERED: DOXYCYCLINE 10100 MG PO (16:30)
[2018-08-04 17:30] VITALS: BP 125/92
== END 2018-08-04 18:27 ==
LOC: ER 13:48
PROVIDERS: Physician Assistant
DX: J44.1 Chronic obstructive pulmonary disease with (acute) exacerbation (principal); J96.00 Acute respiratory failure, unspecified whether with hypoxia or hypercapnia; F17.210 Nicotine dependence, cigarettes, uncomplicated; Z96.698 Presence of other orthopedic joint implants

== ENCOUNTER 2018-08-06 14:03 | Inpatient (IN) | payer OTHER ==
[~2018-08-06] VITALS: Ht 188 cm; Wt 74.0 kg
--- NOTE | ~2018-08-06 | EKG ---
[address] [address] ELECTROCARDIOGRAM REPORT Name: ELIANE LUNDY Room #: 245-P ADM IN M.R.#: [id number] Admission: 08/06/18 Attend Phys: Clement Jean Discharge: Date of : 59 Report #: [id number] THIS REPORT FOR: //name// [facility] Test Date: 2018-08-24 Test Time: 07:13:58 Pat Name: ELIANE LUNDY Department: Room: 245 P Gender: M Supervisor Toy Assembly: NELSON : 1955 Requested By: Justin Rayo Order Number: [id number] MD: Justin Rayo Measurements Intervals [place] Rate: 55 P: 38 [place]: 128 QRS: 80 QRSD: 74 T: 78 QT: 406 QTc: 389 Interpretive Statements Sinus rhythm No significant abnormality, early repolarization Compared to ECG 08/20/2018 20:05:12 Atrial fibrillation no longer present Electronically Signed On 08-24-2018 9:01:14 DRYING TUMBLER OPERATOR by Justin Rayo [email or web address] <ELECTRONICALLY SIGNED> By: Justin Rayo MD, [facility] 08/24/18900 2 2 Justin Rayo MD, [facility] /EPI
--- NOTE | ~2018-08-06 | EKG ---
[address] [address] ELECTROCARDIOGRAM REPORT Name: ELIANE LUNDY Room #: 245-P ADM IN M.R.#: [id number] Admission: 08/06/18 Attend Phys: Clement Jean Discharge: Date of : 59 Report #: [id number] THIS REPORT FOR: //name// [facility] Test Date: 2018-08-07 Test Time: 14:32:45 Pat Name: ELIANE LUNDY Department: Room: 245 P Gender: M Shook Machine Operator: Lacey GANDARA : 1955 Requested By: Lester Root Order Number: [id number] MD: Ted Mcgrath Measurements Intervals [place] Rate: 87 P: 99 [place]: 151 QRS: 76 QRSD: 102 T: 75 QT: 342 QTc: 412 Interpretive Statements Sinus rhythm Low voltage, precordial leads Baseline wander in lead(s) V1,V2 Compared to ECG 08/06/2018 14:39:22 Low QRS voltage now present Atrial fibrillation no longer present Early repolarization no longer present Electronically Signed On 08-07-2018 16:41:50 SENIOR RESIDENT CARE DIRECTOR by Ted Mcgrath [email or web address] <ELECTRONICALLY SIGNED> By: Ted Mcgrath MD 08/07/18 1641 1432 143 Ted Mcgrath MD /EPI
--- NOTE | ~2018-08-06 | EKG ---
[place] [address] [facility] [place] [address] ELECTROCARDIOGRAM REPORT Name: ELIANE LUNDY [facility] [id number] Admission: 08/06/18 Attend Phys: Discharge: Date of : 59 Report #: [id number] THIS REPORT FOR: //name// [facility] ED Test Date: 2018-08-06 Test Time: 14:39:22 Pat Name: ELIANE LUNDY Department: Room: Gender: Doctor Assistant: : 1955 Requested By: Missy Caldera Order Number: [id number] MD: Jean Marie Cardoso Measurements Intervals [place] Rate: 151 P: [place]: QRS: 68 QRSD: 93 T: -72 QT: 327 QTc: 519 Interpretive Statements Atrial fibrillation vs SVT. Repolarization abnormality, prob rate related Compared to ECG 08/04/2018 13:58:45 Electronically Signed On 08-06-2018 14:59:46 EYELETTER by Jean Marie Cardoso [email or web address] <ELECTRONICALLY SIGNED> By: Jean Marie Cardoso MD 08/06/18 1459 1439 1439 MD MANPREET Vicente
--- NOTE | ~2018-08-06 | H ---
[facility] [place] [address] HISTORY AND PHYSICAL Name: ELIANE LUNDY Room #: 245-P ADM IN M.R.#: [id number] Admission: 08/06/18 Attend Phys: Clement Jean Discharge: Date of : 59 Report #: [id number] THIS REPORT FOR: //name// CC: Damien Muro DATE OF SERVICE: 08/06/2018 CHIEF COMPLAINT: Shortness of breath. HISTORY OF PRESENT ILLNESS: The patient is a 62-year-old gentleman with severe COPD who was transferred from [facility] to the ER for evaluation of progressive shortness of breath. 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 He has had no real change in productive cough or fever or chills. He has known chronic severe COPD to the point of needing BiPAP. He has been in the Respiratory Unit at [facility] for many months. He has been evaluated by Dr. Monae in the past. En route he required DuoNeb twice and a nonrebreather face mask with CPAP. PAST MEDICAL HISTORY: Chronic obstructive pulmonary disease. PAST SURGICAL HISTORY: None. FAMILY HISTORY: Noncontributory. SOCIAL HISTORY: Prior tobacco history. ALLERGIES: None. MEDICATIONS: Maxzide, melatonin, DuoNeb, Pulmicort, morphine, Colace, Mucinex, bupropion, prednisone, hydrocodone. REVIEW OF SYSTEMS: Denies headache, chest pain, abdominal pain, nausea, vomiting, diarrhea, constipation, dysuria, syncope. OBJECTIVE: VITAL SIGNS: Temperature 36.4, pulse 79, respirations 13, blood pressure 120/62, O2 sat 97% on high flow nasal cannula. GENERAL: He is awake and alert, in no distress. LUNGS: Distant but clear. HEART: Regular. ABDOMEN: Soft, normoactive bowel sounds. EXTREMITIES: No edema. LABORATORY DATA: ABG, chest x-ray reviewed. ASSESSMENT: Chronic obstructive pulmonary disease exacerbation. [facility] [address] [place] [address] HISTORY AND PHYSICAL Name: ELIANE LUNDY Room #: [address] [place] [address] [place] [facility].#: [id number] Admission: 08/06/18 Attend Phys: Clement Jean Discharge: Date of : 59 Report #: [id number] PLAN: He has been managed in ICU overnight with BiPAP when required. I have spoken with Dr. Monae. He has severe lung disease. At this point, he will be supportive measures. I have discussed with him code Status and he is thinking about his options. If his respiratory status worsens and he requires intubation, he will likely be a chronic ventilator patient with trach and PEG. <ELECTRONICALLY SIGNED> By: Lester Root MD 08/10/18 1314 1123 1141 Lester Root MD /nt
--- NOTE | ~2018-08-06 | HC ---
[facility] [place] [address] CONSULTATION Name: ELIANE LUNDY Room #: 245-P ADM IN M.R.#: [id number] Admission: 08/06/18 Attend Phys: Clement Jean Discharge: Date of : 59 Report #: [id number] THIS REPORT FOR: //name// CC: Damien Muro PRIMARY CARE PHYSICIAN: Dr. Damien Muro. REFERRAL PHYSICIAN: Dr. Lester Root. REASON FOR REFERRAL: Management of severe COPD. HISTORY OF PRESENT ILLNESS: The patient is a 62-year-old white male who is well known to this physician, presents to the Emergency Room with progressive dyspnea. A pulmonary consultation was requested. The patient is known to this physician from previous visit and also being followed longitudinally in the office. The patient has smoked cigarettes most of his life until recently. He has known severe pulmonary impairment. His baseline FEV1 is 0.78 liters or 18% predicted. He is oxygen-dependent at 3 liters of O2. He is steroid-dependent and had been on prednisone 20 mg once a day. He has also developed pulmonary cachexia syndrome resulting in weight loss and malnutrition. He has also had progressive debility and weakness over the past several years. More recently, he has been at shelter facility at [facility]. He was recently seen in the office for evaluation of possible lung transplant evaluation. Over the past 2 years or so, the patient has noticeably been getting weaker. He is having secondary effects from chronic steroids. He was able to stop smoking less than a year ago. He was in his usual state of health until about a week prior to admission. He has no complaint of increasing dyspnea. Otherwise, denies any recent chest pain, productive cough, hemoptysis. Presently, he is resting. He has had episodic severe dyspnea. He has been using BiPAP p.r.n. Otherwise, he denies any nausea, vomiting, diarrhea, chest pain, hemoptysis. Denies any recent productive cough. He does note recent onset of congestion. He thinks he may have viral upper respiratory tract infection. PAST MEDICAL HISTORY: COPD, very severe impairment as mentioned above, [facility] [address] [place] [address] CONSULTATION Name: ELIANE LUNDY GLENNY Room #: 245-P [facility] IN M.R.#: [id number] Admission: 08/06/18 Attend Phys: Clement Jean Discharge: Date of : 59 Report #: [id number] oxygen-dependent, steroid-dependent; atrial fibrillation; hypertension; malnutrition; weakness and debility; history of cellulitis of the foot. PAST SURGICAL HISTORY: Status post bilateral lens implants placement, right foot reconstructive surgery. ALLERGIES: None to medications. CURRENT MEDICATIONS: Include DuoNeb q.i.d. p.r.n., hydrocodone, prednisone 20 mg once a day, doxycycline 100 mg p.o. b.i.d., Wellbutrin, Mucinex, he is on 3 liters of O2, Nicoderm patch 7 mg per hour. FAMILY HISTORY: Mother of congestive heart failure. SOCIAL HISTORY: He has smoked most of his life until early this year when he stopped smoking. He is . He has children. He does not have a stable home environment. He was at one point living with his children renting a room. He denies any alcohol use. Prior to stopping smoking, he has smoked 1-2 packs a day for 40+ years. REVIEW OF SYSTEMS: Notable for progressive weakness, otherwise 10-point system review negative. PHYSICAL EXAMINATION: GENERAL: He is awake, alert, resting at this moment, appears fatigued, mildly dyspneic. VITAL SIGNS: Temperature is 97.6 degrees Fahrenheit, pulse is 87, respiratory rate is 20, blood pressure 160/87 mmHg, saturation 98%. HEENT: Normocephalic, atraumatic. NECK: Supple, without lymphadenopathy or thyromegaly. CHEST: Breath sounds are decreased bilaterally with prolonged expiratory phase, mild expiratory wheezes. Air movement is markedly reduced. CARDIOVASCULAR: Normal S1, S2. No murmurs or gallop. There is no JVD. There is no carotid bruit. Pulses are 2+/4+ bilaterally. ABDOMEN: Soft, nontender. No organomegaly or masses felt. GENITOURINARY: Deferred. RECTAL: Deferred. EXTREMITIES: There is no cyanosis, clubbing or edema. MUSCULOSKELETAL: Notable for moderate muscle atrophy. Moderately cachectic-appearing 62-year-old white male. LABORATORY DATA: Chest x-ray shows hyperexpansion, no obvious infiltrates. Influenza A and B swab is negative. EKG was unremarkable. Electrolytes are normal. Creatinine is 1.1. Liver enzymes unremarkable. WBC 13,900, hemoglobin 12.7, platelets are normal. No evidence of significant bandemia. Arterial blood gas revealed pH 7.37, pCO2 of 51, pO2 145 on FiO2 [address] oxygen[address] [facility] [address] [place] [address] CONSULTATION Name: ELIANE LUNDY Room #: 245-P [facility] IN M.R.#: [id number] Admission: 08/06/18 Attend Phys: Clement Jean Discharge: Date of : 59 Report #: [id number] IMPRESSION: 1. Zkmry-dn-[id number] hypercapnic-hypoxic respiratory failure in this 62-year-old white male with severe end-stage chronic obstructive pulmonary disease. He is oxygen-dependent, he is steroid-dependent, etiology due to exacerbation of chronic obstructive pulmonary disease. With chronic interstitial infiltrates, cannot rule out lower respiratory tract infection. Ongoing debility and weakness is likely contributing. Viral syndrome is more likely given history and presentation. 2. Chronic obstructive pulmonary disease, very severe impairment, baseline FEV1 of 0.78 liters or 18% predicted, oxygen-dependent at 3 liters O2, steroid-dependent at 20 mg once a day. He is end-stage. Because of his ongoing tobacco use, now with steroid use along with debility and weakness, I am afraid he is not a candidate for lung transplantation. 3. Malnutrition, due to pulmonary cachexia syndrome. 4. Progressive debility and weakness due to above. Unfortunately, given severe pulmonary impairment, not certain ongoing physical therapy would help. 5. History of heart failure, suspect diastolic heart failure or perhaps right-sided due to underlying cor pulmonale. 6. Diabetes mellitus type 2. 7. Hypertension. RECOMMENDATIONS: We would recommend broad-spectrum antibiotics, corticosteroids, bronchodilator therapy. BiPAP p.r.n. The patient has been experiencing severe episodes of respiratory distress, anxiety. This is obviously related to underlying severe pulmonary impairment. We discussed about possible need for intubation if his respiratory status deteriorates. At this time, the patient desires to be a full code and wishes mechanical ventilation. He will think about the code status and let us know his decisions. We also had a long discussion previously in the office and today in that if he were to be placed on mechanical ventilation, it is uncertain whether the patient could be weaned from mechanical ventilation. His overall quality of life will be impaired, etc. The patient voices understanding. Thank you for this consultation. <ELECTRONICALLY SIGNED> By: Jimy Monae MD 08/08/18 1530 1320 2251 Jimy Monae MD /nt
--- NOTE | ~2018-08-06 | 2DMMODE ---
[facility] [address] [place] [address] 2 D/M-MODE ECHOCARDIOGRAM Name: ELIANE LUNDY Room #: 245-P ADM IN M.R.#: [id number] Admission: 08/06/18 Attend Phys: Damien Clifton Discharge: Date of : 59 Date of Service: 08/14/18 1129 Report #: [id number] THIS REPORT FOR: //name// APPROVED REPORT Study performed: 08/14/2018 09:57:20 EXAM: Comprehensive 2D, Doppler, and color-flow Echocardiogram Patient Location: ICU Room #: [facility] Status: routine BSA: 2.00 HR: 97 bpm BP: 114/85 mmHg Rhythm: Atrial Fibrillation Other Information Study Quality: Adequate Indications COPD Diabetes Atrial Fibrillation Dyspnea 2D Dimensions IVSd: 9.16 (7-11mm) LVOT Diam: 21.66 (18-24mm) LVDd: 47.87 mm PWd: 9.33 (7-11mm) Ascending Ao: 33.34 (22-36mm) LVDs: 32.97 (25-40mm) Aortic Root: 35.38 mm IVC: 28.00 mm Volumes Left Atrial Volume (Systole) Single Plane 4CH: 54.03 mL Single Plane 2CH: 41.90 mL LA ESV Index: 27.00 mL/m2 Aortic Valve AoV Peak Gerhard.: 1.55 m/s AO Peak Gr.: 9.60 mmHg LVOT Max P.01 mmHg LVOT Max V: 1.00 m/s SESAR Vmax: 2.38 cm2 Pulmonary Valve PV Peak Gerhard.: 1.46 m/s PV Peak Gr.: 8.64 mmHg [facility] [address] [place] [address] 2 D/M-MODE ECHOCARDIOGRAM Name: ELIANE LUNDY Room #: 245-P [facility] IN [facility].#: [id number] Admission: 08/06/18 Attend Phys: Damien Clifton Discharge: Date of : 59 Date of Service: 08/14/18 1129 Report #: [id number] Tricuspid Valve TR Peak Gerhard.: 2.49 m/s TR Peak Gr.: 24.77 mmHg PA Pressure: 35.00 mmHg Left Ventricle The left ventricle is normal size. There is normal left ventricular wall thickness. The left ventricular systolic function is normal. The left ventricular ejection fraction is within the normal range. LVEF is 60-65%. This study is not technically sufficient to allow evaluation of the LV diastolic function due to atrial fibrillation. Right Ventricle Right ventricle is not well visualized. Atria The left atrium size is normal. Right atrium is at the upper limits of normal. Aortic Valve The aortic valve is normal in structure. No aortic regurgitation is present. There is no aortic valvular stenosis. Mitral Valve The mitral valve is normal in structure. There is no mitral valve regurgitation noted. No evidence of mitral valve stenosis. Tricuspid Valve The tricuspid valve is normal in structure. There is trace tricuspid regurgitation. Pulmonic Valve The pulmonary valve is normal in structure. Trace pulmonic regurgitation. Great Vessels The aortic root is normal in size. IVC is dilated and collapses >50% with inspiration. Pericardium There is no pericardial effusion. <Conclusion> Technically difficult study. [facility] [place] [address] 2 D/M-MODE ECHOCARDIOGRAM Name: ELIANE LUNDY Room #: 245-P ADM IN M.R.#: [id number] Admission: 08/06/18 Attend Phys: Damien Clifton Discharge: Date of : 59 Date of Service: 08/14/18 1129 Report #: [id number] The left ventricle is normal size. There is normal left ventricular wall thickness. The left ventricular systolic function is grossly normal. The right-sided chambers are not well visualized. The left atrium size is normal. The aortic valve is normal in structure. The mitral valve is normal in structure. There is trace tricuspid regurgitation. <ELECTRONICALLY SIGNED> By: Ted Mcgrath MD 08/14/18 1129 1129 1129 Ted Mcgrath MD /INF
--- NOTE | ~2018-08-06 | O ---
[facility] [place] [address] OPERATIVE REPORT Name: ELIANE LUNDY Room #: 245-P ADM IN M.R.#: [id number] Admission: 08/06/18 Attend Phys: Clement Jean Discharge: Date of : 59 Report #: [id number] THIS REPORT FOR: //name// CC: Damien Muro DATE OF SERVICE: 08/10/2018 PROCEDURE: [place] [address]. PREOPERATIVE DIAGNOSES: 1. Chronic obstructive pulmonary disease. 2. Respiratory failure. POSTOPERATIVE DIAGNOSES: 1. Chronic obstructive pulmonary disease. 2. Respiratory failure. SURGEON: Thierry Marrufo MD ESTIMATED BLOOD LOSS: 20 mL. ANESTHESIA: General. INDICATIONS FOR PROCEDURE: The patient is a 62-year-old gentleman with a history of advanced COPD and respiratory failure. He was recently intubated and it was decided that he would benefit from tracheostomy placement. The risks, benefits and alternatives were discussed with him and he agreed to proceed. DESCRIPTION OF PROCEDURE: After consent was obtained, the patient was taken to the operating room and placed in supine position. He underwent general anesthesia. He was prepped and draped in the usual fashion. A timeout was performed. Correct patient and procedure were identified. Horizontal incision was marked from the cricoid cartilage down towards the sternal notch. This was infiltrated with approximately 3 mL of 1% lidocaine with 1:100,000 epinephrine. After time was given for vasoconstriction to take effect, skin was incised with a 15 blade scalpel. Subcutaneous fat was then removed using the Bovie cautery and an Allis clamp. The fascia was then divided using Bovie cautery as were the strap muscles. These were divided in midline raphae and retracted laterally. Dissection was carried down to the cricoid cartilage. The soft tissue and thyroid isthmus were then elevated off the anterior tracheal wall. This was divided using the Bovie cautery and retracted laterally in order to expose the anterior trachea. An incision was marked between the second and third tracheal rings and an inferior Mona flap was created. This was incised with an 11 blade scalpel and the vertical limbs were created using a heavy curved Mayos. Anesthesia then withdrew the endotracheal tube and a size 8 DCT tracheostomy tube was then placed into the trachea. The patient was connected to the [facility] [address] [place] [address] OPERATIVE REPORT Name: ELIANE LUNDY GLENNY Room #: 245-P [facility] IN M.R.#: [id number] Admission: 08/06/18 Attend Phys: Clement Jean Discharge: Date of : 59 Report #: [id number] anesthesia circuit and end tidal CO2s were confirmed. Surgicel was then placed into the incision and the trach was secured to the skin at 4 points using a 3-0 nylon suture and also Velcro trach ties. The patient was then turned back to the Anesthesia Service and taken back to the ICU in stable condition. All counts were reported as correct. There were no complications during the procedure. DISPOSITION: The patient will be transported back to the ICU where he will begin tracheostomy care. <ELECTRONICALLY SIGNED> By: Thierry Marrufo MD 08/11/18 1230 1213 1230 Thierry Marrufo MD /nt
--- NOTE | ~2018-08-06 | EKG ---
[address] [address] ELECTROCARDIOGRAM REPORT Name: ELIANE LUNDY Room #: 245-P ADM IN M.R.#: [id number] Admission: 08/06/18 Attend Phys: Clement Jean Discharge: Date of : 59 Report #: [id number] THIS REPORT FOR: //name// [facility] Test Date: 2018-08-20 Test Time: 20:05:12 Pat Name: ELIANE LUNDY Department: Room: 245 P Gender: M Resources Representative: Clement LANTIGUA : 1955 Requested By: Ted Mcgrath Order Number: [id number] MD: Ted Mcgrath Measurements Intervals [place] Rate: 126 P: NM: QRS: 73 QRSD: 77 T: 60 QT: 281 QTc: 407 Interpretive Statements Atrial fibrillation Nonspecific ST depression Compared to ECG 08/07/2018 14:32:45 ST (T wave) deviation now present Sinus rhythm no longer present Electronically Signed On 08-21-2018 9:17:18 SILK [employer]ENER by Ted Mcgrath [email or web address] <ELECTRONICALLY SIGNED> By: Ted Mcgrath MD 08/21/18 0917 04 04 Ted Mcgrath MD /MEME
[~2018-08-06 14:03] MED LIST changes: +DULCOLAX5 MG PO; +IPRATROPIU0.2 MG/1 M INH; +MAXZIDE-25 MG1 EACH PO; +MELATONIN5 M1 PO; +MSL20MG/ML PO; +PULMICORT0.5 MG/22 INH
[2018-08-06 14:21] LABS: ABSOLUTE NEUTROPHILS 12.3 thou/uL (1.4-8.2); BASOPHILS 0.1 % (0.0-2.0); EOSINOPHILS 0.3 % (0.0-3.0); HEMATOCRIT 37.9 % (42.0-52.0); HEMOGLOBIN 12.7 gm/dL (14.0-18.0); LYMPHOCYTES 5.2 % (24.0-44.0); MCH 30.1 pg (26.0-34.0); MCHC 33.6 g/dL (28.0-37.0); MCV 89.7 fL (80.0-100.0); MONOCYTES 5.7 % (1.0-8.0); PLATELET COUNT 368 thou/uL (150-400); POLYS 88.7 % (36.0-66.0); RBC 4.23 mil/uL (4.50-6.00); RDW 13.8 % (10.5-14.5); WBC 13.9 thou/uL (4.0-11.0)
[2018-08-06 14:27] LABS: ANION GAP 10 mmol/L (7-16); BUN 24 mg/dL (7-18); CALCIUM 10.1 mg/dL (8.5-10.1); CHLORIDE 98 mmol/L (98-107); CO2 30 mmol/L (21-32); CREATININE 1.1 mg/dL (0.7-1.3); GLUCOSE 105 mg/dL (74-106); POTASSIUM 4.4 mmol/L (3.5-5.1); SODIUM 138 mmol/L (136-145)
[2018-08-06 14:33] LABS: BE(vivo) 3.4 mmol/L (-2 to +3); HCO3 29.5 mmol/L (22.0-26.0); PCO2 51.2 mmHg (35.0-45.0); PO2 145.6 mmHg (80.0-100.0); pH 7.378 (7.360-7.450); sO2 98.8 % (92.0-98.0)
[2018-08-06 14:37] LABS: TROPONIN-I <0.06 ng/mL (<0.06)
[2018-08-06 16:11] VITALS: BP 114/80
[2018-08-06 16:44] VITALS: BP 106/69; BP 106/77
[2018-08-06 17:09] VITALS: BP 150/100
[2018-08-06 19:41] VITALS: BP 125/84
[2018-08-06] MEDS ORDERED: BISACODYL SUPP10 MG RECTAL (21:55)
[2018-08-06] MEDS ORDERED: COLACE100 MG PO (22:01)
[2018-08-07] VITALS (30 sets, daily range): BP systolic 112–161; BP diastolic 58–95
[2018-08-08] VITALS (66 sets, daily range): BP systolic 89–153; BP diastolic 56–103
[2018-08-08 04:41] LABS: HEMATOCRIT 31.4 % (42.0-52.0); MCH 30.3 pg (26.0-34.0); MCHC 33.6 g/dL (28.0-37.0); MCV 90.3 fL (80.0-100.0); RBC 3.48 mil/uL (4.50-6.00); RDW 13.6 % (10.5-14.5); WBC 8.8 thou/uL (4.0-11.0)
[2018-08-08 04:46] LABS: HEMOGLOBIN 10.6 gm/dL (14.0-18.0)
[2018-08-08 04:55] LABS: PHOSPHORUS 3.1 mg/dL (2.5-4.9)
[2018-08-08 04:59] LABS: ALBUMIN 3.2 g/dL (3.4-5.0); CALCIUM 9.2 mg/dL (8.5-10.1); POTASSIUM 4.3 mmol/L (3.5-5.1); TOTAL BILIRUBIN 0.4 mg/dL (<0.1-1.0); TOTAL PROTEIN 6.7 g/dL (6.4-8.2)
[2018-08-08 13:29] LABS: BE(vivo) 1.8 mmol/L (-2 to +3); HCO3 27.8 mmol/L (22.0-26.0); PCO2 49.6 mmHg (35.0-45.0); PO2 96.4 mmHg (80.0-100.0); pH 7.366 (7.360-7.450); sO2 97.1 % (92.0-98.0)
[2018-08-09] VITALS (63 sets, daily range): BP systolic 85–167; BP diastolic 53–104
[2018-08-09 05:14] LABS: BE(vivo) 6.1 mmol/L (-2 to +3); HCO3 31.3 mmol/L (22.0-26.0); PCO2 48.2 mmHg (35.0-45.0); PO2 70.5 mmHg (80.0-100.0); pH 7.431 (7.360-7.450); sO2 94.4 % (92.0-98.0)
[2018-08-09 08:28] LABS: CALCIUM 9.8 mg/dL (8.5-10.1); CREATININE 0.8 mg/dL (0.7-1.3); MAGNESIUM 2.3 mg/dL (1.8-2.4); PHOSPHORUS 3.2 mg/dL (2.5-4.9); POTASSIUM 3.1 mmol/L (3.5-5.1)
[2018-08-09 16:11] LABS: HEMATOCRIT 35.4 % (42.0-52.0); HEMOGLOBIN 11.7 gm/dL (14.0-18.0)
[2018-08-10] VITALS (63 sets, daily range): BP systolic 88–159; BP diastolic 56–99
[2018-08-10 05:33] LABS: CALCIUM 9.2 mg/dL (8.5-10.1); CREATININE 0.8 mg/dL (0.7-1.3); MAGNESIUM 2.3 mg/dL (1.8-2.4); POTASSIUM 3.6 mmol/L (3.5-5.1)
[2018-08-10 05:40] LABS: HEMATOCRIT 33.8 % (42.0-52.0); HEMOGLOBIN 11.1 gm/dL (14.0-18.0); MCHC 32.9 g/dL (28.0-37.0); MCV 91.3 fL (80.0-100.0); RBC 3.7 mil/uL (4.50-6.00); WBC 16.1 thou/uL (4.0-11.0)
[2018-08-10 10:37] LABS: BE(vivo) 6.6 mmol/L (-2 to +3); HCO3 32.5 mmol/L (22.0-26.0); PCO2 53.1 mmHg (35.0-45.0); pH 7.405 (7.360-7.450); sO2 95.7 % (92.0-98.0)
[2018-08-11] VITALS (47 sets, daily range): BP systolic 82–183; BP diastolic 36–113
[2018-08-11 05:44] LABS: CALCIUM 8.6 mg/dL (8.5-10.1); CREATININE 0.8 mg/dL (0.7-1.3); MAGNESIUM 2.3 mg/dL (1.8-2.4); PHOSPHORUS 3.1 mg/dL (2.5-4.9); POTASSIUM 4.1 mmol/L (3.5-5.1)
[2018-08-12] VITALS (33 sets, daily range): BP systolic 93–177; BP diastolic 51–109
[2018-08-12 05:02] LABS: HEMATOCRIT 33.3 % (42.0-52.0); HEMOGLOBIN 10.8 gm/dL (14.0-18.0); MCH 29.3 pg (26.0-34.0); MCHC 32.5 g/dL (28.0-37.0); MCV 90.2 fL (80.0-100.0); RBC 3.7 mil/uL (4.50-6.00); WBC 19.3 thou/uL (4.0-11.0)
[2018-08-12 05:12] LABS: CALCIUM 8.5 mg/dL (8.5-10.1); CREATININE 0.7 mg/dL (0.7-1.3); POTASSIUM 4.1 mmol/L (3.5-5.1)
[2018-08-12 10:24] LABS: BE(vivo) 4.3 mmol/L (-2 to +3); HCO3 29.7 mmol/L (22.0-26.0); PCO2 47.7 mmHg (35.0-45.0); PO2 89.9 mmHg (80.0-100.0); pH 7.412 (7.360-7.450); sO2 96.9 % (92.0-98.0)
[2018-08-13] VITALS (33 sets, daily range): BP systolic 109–186; BP diastolic 59–120
[2018-08-14] VITALS (39 sets, daily range): BP systolic 72–142; BP diastolic 43–93
[2018-08-14 05:47] LABS: CALCIUM 9.3 mg/dL (8.5-10.1); CREATININE 0.6 mg/dL (0.7-1.3); POTASSIUM 3.9 mmol/L (3.5-5.1)
[2018-08-14 05:55] LABS: HEMATOCRIT 34.3 % (42.0-52.0); HEMOGLOBIN 10.9 gm/dL (14.0-18.0); MCHC 31.9 g/dL (28.0-37.0); MCV 90.9 fL (80.0-100.0); RBC 3.77 mil/uL (4.50-6.00); RDW 13.8 % (10.5-14.5); WBC 13.5 thou/uL (4.0-11.0)
[2018-08-14 10:26] LABS: BE(vivo) 5.2 mmol/L (-2 to +3); HCO3 30.1 mmol/L (22.0-26.0); PCO2 45.6 mmHg (35.0-45.0); PO2 63.3 mmHg (80.0-100.0); pH 7.438 (7.360-7.450); sO2 92.8 % (92.0-98.0)
[2018-08-15] VITALS (91 sets, daily range): BP systolic 71–1140; BP diastolic 12–104
[2018-08-16] VITALS (52 sets, daily range): BP systolic 78–201; BP diastolic 45–129
[2018-08-16 04:44] LABS: HEMATOCRIT 29.3 % (42.0-52.0); HEMOGLOBIN 9.6 gm/dL (14.0-18.0); MCH 29.6 pg (26.0-34.0); MCHC 32.6 g/dL (28.0-37.0); MCV 90.8 fL (80.0-100.0); RBC 3.23 mil/uL (4.50-6.00); RDW 13.6 % (10.5-14.5); WBC 18.2 thou/uL (4.0-11.0)
[2018-08-16 04:50] LABS: CALCIUM 8.3 mg/dL (8.5-10.1); CREATININE 0.6 mg/dL (0.7-1.3); POTASSIUM 4.2 mmol/L (3.5-5.1)
[2018-08-17] VITALS (58 sets, daily range): BP systolic 91–168; BP diastolic 53–106
[2018-08-18] VITALS (60 sets, daily range): BP systolic 80–182; BP diastolic 42–107
[2018-08-18 05:50] LABS: HEMATOCRIT 33.1 % (42.0-52.0); HEMOGLOBIN 10.9 gm/dL (14.0-18.0); MCH 29.6 pg (26.0-34.0); MCHC 32.8 g/dL (28.0-37.0); MCV 90.1 fL (80.0-100.0); RBC 3.68 mil/uL (4.50-6.00); RDW 13.9 % (10.5-14.5); WBC 25.5 thou/uL (4.0-11.0)
[2018-08-18 05:59] LABS: CALCIUM 8.4 mg/dL (8.5-10.1); CREATININE 0.7 mg/dL (0.7-1.3); POTASSIUM 4.1 mmol/L (3.5-5.1)
[2018-08-18 19:25] LABS: URINE BILIRUBIN NEGATIVE (Negative); URINE BLOOD NEGATIVE (Negative); URINE CLARITY CLEAR; URINE COLOR YELLOW; URINE GLUCOSE-RANDOM* NEGATIVE (Negative); URINE KETONES NEGATIVE (Negative); URINE LEUKOCYTES-REFLEX NEGATIVE (Negative); URINE NITRITE-REFLEX NEGATIVE (Negative); URINE PROTEIN (DIPSTICK) NEGATIVE (Negative)
[2018-08-19] VITALS (55 sets, daily range): BP systolic 80–150; BP diastolic 36–97
[2018-08-19 05:52] LABS: HEMOGLOBIN 9.3 gm/dL (14.0-18.0); MCH 30.1 pg (26.0-34.0); MCHC 33.2 g/dL (28.0-37.0); MCV 90.5 fL (80.0-100.0); RBC 3.09 mil/uL (4.50-6.00); RDW 13.7 % (10.5-14.5)
[2018-08-19 06:16] LABS: ALBUMIN 1.8 g/dL (3.4-5.0); CALCIUM 8.2 mg/dL (8.5-10.1); CREATININE 0.6 mg/dL (0.7-1.3); POTASSIUM 4.4 mmol/L (3.5-5.1); TOTAL BILIRUBIN 0.4 mg/dL (<0.1-1.0); TOTAL PROTEIN 5.8 g/dL (6.4-8.2)
[2018-08-20] VITALS (78 sets, daily range): BP systolic 87–174; BP diastolic 39–104
[2018-08-20 05:39] LABS: HEMATOCRIT 32.7 % (42.0-52.0); HEMOGLOBIN 10.7 gm/dL (14.0-18.0); MCH 29.5 pg (26.0-34.0); MCHC 32.6 g/dL (28.0-37.0); MCV 90.3 fL (80.0-100.0); RBC 3.62 mil/uL (4.50-6.00); RDW 13.5 % (10.5-14.5); WBC 24.2 thou/uL (4.0-11.0)
[2018-08-20 05:50] LABS: CALCIUM 8.6 mg/dL (8.5-10.1); CREATININE 0.5 mg/dL (0.7-1.3); POTASSIUM 5.1 mmol/L (3.5-5.1)
[2018-08-20 11:44] LABS: BE(vivo) 5.6 mmol/L (-2 to +3); HCO3 31.8 mmol/L (22.0-26.0); PCO2 54.3 mmHg (35.0-45.0); PO2 93.8 mmHg (80.0-100.0); pH 7.385 (7.360-7.450); sO2 96.9 % (92.0-98.0)
[2018-08-21] VITALS (37 sets, daily range): BP systolic 80–196; BP diastolic 40–136
[2018-08-21 06:42] LABS: HEMATOCRIT 34.4 % (42.0-52.0); HEMOGLOBIN 11.3 gm/dL (14.0-18.0); MCH 29.6 pg (26.0-34.0); MCHC 32.7 g/dL (28.0-37.0); MCV 90.3 fL (80.0-100.0); RBC 3.81 mil/uL (4.50-6.00); RDW 13.3 % (10.5-14.5); WBC 20.3 thou/uL (4.0-11.0)
[2018-08-21 06:59] LABS: CALCIUM 9.1 mg/dL (8.5-10.1); CREATININE 0.5 mg/dL (0.7-1.3); POTASSIUM 4.5 mmol/L (3.5-5.1)
[2018-08-22] VITALS (42 sets, daily range): BP systolic 69–178; BP diastolic 30–107
[2018-08-22 20:58] LABS: BE(vivo) 5.4 mmol/L (-2 to +3); HCO3 33.8 mmol/L (22.0-26.0); PCO2 69.8 mmHg (35.0-45.0); PO2 262.5 mmHg (80.0-100.0); pH 7.303 (7.360-7.450); sO2 99.5 % (92.0-98.0)
[2018-08-23] VITALS (95 sets, daily range): BP systolic 64–166; BP diastolic 37–96
[2018-08-23 07:49] LABS: HEMATOCRIT 33.5 % (42.0-52.0); HEMOGLOBIN 10.9 gm/dL (14.0-18.0); MCH 29.6 pg (26.0-34.0); MCHC 32.5 g/dL (28.0-37.0); MCV 91.1 fL (80.0-100.0); RBC 3.68 mil/uL (4.50-6.00); RDW 13.6 % (10.5-14.5); WBC 22.6 thou/uL (4.0-11.0)
[2018-08-23 07:56] LABS: CALCIUM 8.2 mg/dL (8.5-10.1); CREATININE 0.4 mg/dL (0.7-1.3); POTASSIUM 4.9 mmol/L (3.5-5.1)
[2018-08-24] VITALS (93 sets, daily range): BP systolic 71–157; BP diastolic 32–94
[2018-08-24 04:26] LABS: CALCIUM 8.7 mg/dL (8.5-10.1); CREATININE 0.5 mg/dL (0.7-1.3); POTASSIUM 4.2 mmol/L (3.5-5.1)
[2018-08-24 04:40] LABS: HEMOGLOBIN 10.6 gm/dL (14.0-18.0); MCH 29.8 pg (26.0-34.0); MCHC 33.1 g/dL (28.0-37.0); MCV 90.1 fL (80.0-100.0); RBC 3.55 mil/uL (4.50-6.00); RDW 13.4 % (10.5-14.5); WBC 18.4 thou/uL (4.0-11.0)
[2018-08-25] VITALS (85 sets, daily range): BP systolic 67–165; BP diastolic 24–107
[2018-08-26] VITALS (45 sets, daily range): BP systolic 66–164; BP diastolic 40–108
[2018-08-26 06:06] LABS: CALCIUM 8.6 mg/dL (8.5-10.1); CREATININE 0.5 mg/dL (0.7-1.3); POTASSIUM 4.3 mmol/L (3.5-5.1)
[2018-08-27] VITALS (24 sets, daily range): BP systolic 0–121; BP diastolic 0–74
[2018-08-27 05:34] LABS: CALCIUM 8.8 mg/dL (8.5-10.1); CREATININE 0.6 mg/dL (0.7-1.3); POTASSIUM 4.5 mmol/L (3.5-5.1)
== END 2018-08-27 19:25 | DRG 4 ==
LOC: ER 14:03 → ICU 15:55 → EROBS 15:55 → 2N 16:48 → ICU 23:50
PROVIDERS: Emergency Medicine; Internal Medicine; Internal Medicine Cardiovascular Disease; Internal Medicine Geriatric Medicine; Internal Medicine Pulmonary Disease; Pediatrics
DX: Z79.899 Other long term (current) drug therapy (principal); J96.22 Acute and chronic respiratory failure with hypercapnia; I50.33 Acute on chronic diastolic (congestive) heart failure; J96.21 Acute and chronic respiratory failure with hypoxia; J44.1 Chronic obstructive pulmonary disease with (acute) exacerbation; E46 Unspecified protein-calorie malnutrition; G93.40 Encephalopathy, unspecified; R04.2 Hemoptysis; Z96.1 Presence of intraocular lens; J06.9 Acute upper respiratory infection, unspecified; E11.9 Type 2 diabetes mellitus without complications; I48.0 Paroxysmal atrial fibrillation; G47.33 Obstructive sleep apnea (adult) (pediatric); D72.829 Elevated white blood cell count, unspecified; D64.9 Anemia, unspecified; F41.9 Anxiety disorder, unspecified; I11.0 Hypertensive heart disease with heart failure; R00.0 Tachycardia, unspecified; I95.9 Hypotension, unspecified; Z99.81 Dependence on supplemental oxygen; Z79.52 Long term (current) use of systemic steroids; Z82.49 Family history of ischemic heart disease and other diseases of the circulatory system; Z68.20 Body mass index [BMI] 20.0-20.9, adult; Z79.82 Long term (current) use of aspirin
CPT/HCPCS: 10078; 27000; 50101; 50386; 50398; 50455; 56525; 56526; 56639; 57006; 62110; 62900